=== PATIENT | male | born 1985 | race Caucasian/White ===

== ENCOUNTER → 2020-03-06 12:06 | Outpatient (BNVA) | payer OTHER, SELFPAY | PROVIDERS: Family Provider Nurse Practitioner Family; Visit Provider Emergency Medicine | DX: K76.0 Fatty (change of) liver, not elsewhere classified (principal); R14.0 Abdominal distension (gaseous); R10.9 Unspecified abdominal pain; R60.9 Edema, unspecified | CPT/HCPCS: 80053; 80061; 80074; 82247; 82248; 83036; 83690; 85025 ==

== ENCOUNTER 2021-01-14 14:17 | Emergency (ER) | payer OTHER, SELFPAY ==
[2021-01-14 14:47] VITALS: BP 149/93; PULSE 79; RESP 18; TEMP 36.6; O2SAT 97; BMI 48.7
--- NOTE | 2021-01-14 14:56 | ED_ITS ---
HPI - Abdominal Pain General: Chief Complaint: Abdominal Pain Stated Complaint: constipated, bloated Time Seen by Provider: 01/14/21 14:20 History of Present Illness: HPI narrative: 35-year-old male presents emergency room complaining of bloating and just generally not feeling well. He has not had a normal bowel movement for several days he is taken MiraLAX and mag citrate with only minimal results he mostly just gets watery discolored stool that is colored the same color is a mag citrate he took a. He has not had any vomiting or diarrhea he is not had any confusion. He does have a history of liver disease his last time he had labs checked was about 3 months ago they are not abnormal at that time. Is not currently on any lactulose. MD elicited complaint: abdominal pain Pertinent past history: constipation and other (History of liver disease) Onset (ago): day(s) Pain Consistency: intermittent Location: Diffuse Severity: moderate Quality: cramping Radiation: none Migration to: no migration Exacerbating factors: nothing Relieving factors: nothing Associated Symptoms: Reports bloating, constipation, GI cramping, nausea and poor appetite; Denies anorexia, belching, change in bowel habits, change in stool character, chills, coffee ground emesis, diarrhea, dyspepsia, dysuria, excessive flatus, fever(s), heartburn, hematochezia, hematuria, hematemesis, fecal incontinence, loose stools, melena, syncope and vomiting Review of Systems Const: Denies: fever(s) or chills ENMT: Denies: throat pain, ear or mastoid pain, nasal discharge or nasal congestion Card: Denies: syncope Resp: Denies: dyspnea, productive cough or non-productive cough GI: Reports: nausea, constipation, bloating and GI cramping; Denies: vomiting, hematemesis, coffee ground emesis, heartburn, diarrhea, belching, excessive flatus, fecal incontinence, change in bowel habits, change in stool character, hematochezia or melena : Denies: dysuria or hematuria Skin/Breast: Denies: rash or pruritus PFS ED PFSH: Medical History Nonalcoholic fatty liver disease Peripheral edema Family History Father Hypertension Diabetes Denies family history of Stroke Social History Smoking and tobacco status: former smoker Alcohol intake: former Year of sobriety/quit date alcohol: 2009 Physical Exam Const: COMMON NORMALS: no acute distress GENERAL APPEARANCE: cooperative and comfortable ORIENTATION/CONSCIOUSNESS: Yes awake, Yes oriented to person, Yes oriented to place and Yes oriented to time HENMT: COMMON NORMALS: normocephalic, atraumatic and hearing grossly normal bilaterally HEAD & SCALP: normocephalic and atraumatic Neck/C-Spine: COMMON NORMALS: no JVD Resp: COMMON NORMALS: normal respiratory effort, No retractions, No use of accessory muscles and clear to auscultation bilaterally AUSCULTATION: clear to auscultation bilaterally Cardio: COMMON NORMALS: no JVD, regular rate, regular rhythm and No murmurs present (Cardio) RATE: regular rate RHYTHM: regular rhythm GI: COMMON NORMALS: Soft to palpation and No hepatosplenomegaly present AUSCULTATION: Yes normoactive bowel sounds PALPATION: Yes Soft to palpation, No Tenderness to palpation present (GI), No Guarding due to palpation present (GI) and Yes No hepatosplenomegaly present Extremity: COMMON NORMALS: normal to inspection, capillary refill normal, no clubbing, cyanosis or edema, no calf tenderness and no pedal edema Neuro: SENSORIUM/ORIENTATION: Yes oriented to person, Yes oriented to place and Yes oriented to time Skin: COMMON NORMALS: no rashes or lesions noted GENERAL SKIN EXAM: no rashes or lesions noted Course Vital Signs: Vital signs: Vital Signs Temperature 97.8 F 01/14/21 14:47 Pulse Rate 78 01/14/21 18:19 Respiratory Rate 16 01/14/21 18:19 Blood Pressure 141/78 01/14/21 18:19 Pulse Oximetry 100 01/14/21 18:19 MDM - Abdominal Pain MDM Narrative: Medical decision making narrative: Labs and imaging of the patient. Based on his history and his exam will he is simply constipated his abdominal exam is benign he has no acute peritoneal signs. His laboratory tests are reviewed and is well. At this point I do not think a CT of the abdomen with the significantly contributory. We will discharge him home have a new fleets enema when he gets results from that then I would recommend he do some mag use some mag citrate. Discussed with Richard is for maintenance of regular bowel movements with his stimulants. Follow-up with his primary care doctor. He probably should at some point in the near future to get a colonoscopy done given these complaints. Lab Data: Labs: Lab Results 01/14/21 01/14/21 01/14/21 Range/Units 15:24 15:24 16:26 WBC 11.1 H (4.0-10.0) 10^3/ uL RBC 4.76 (4.1-5.3) 10^6/u L Hgb 14.9 (11.7-16.6) g/dL Hct 45.0 (42.0-52.0) % MCV 94.5 H (80-94) fl MCH 31.3 (28.0-34.0) pg MCHC 33.1 (30.0-36.0) g/dL RDW 17.4 H (12.1-15.1) % Plt Count 118 L (130-400) 10^3/c mm MPV 10.5 H (7.4-10.4) fL Neut % (Auto) 63.6 % Lymph % (Auto) 25.3 % [place] % (Auto) 9.5 % Eos % (Auto) 1.0 % Baso % (Auto) 0.1 % Neut # (Auto) 7.03 (1.8-7.7) 10^3/u L Lymph # (Auto) 2.8 (0.8-4.8) 10^3/u L [place] # (Auto) 1.1 H (0.2-0.9) 10^3/u L Eos # (Auto) 0.1 (0.0-0.8) 10^3/u L Baso # (Auto) 0.0 (0.0-0.1) 10^3/u L Nucleated RBC % (a uto) 0 % Nucleated RBCs # 0.0 /100WBC Sodium Cancelled Potassium Cancelled Chloride Cancelled Carbon Dioxide Cancelled Anion Gap Cancelled BUN Cancelled Creatinine Cancelled GFR Calculation Cancelled Glucose Cancelled Calculated Osmolal ity Cancelled Calcium Cancelled Total Bilirubin Cancelled AST Cancelled ALT Cancelled Alkaline Phosphata se Cancelled Ammonia 25 (16-60) umol/L Total Protein Cancelled Albumin Cancelled Globulin Cancelled Lipase Cancelled 01/14/21 Range/Units 16:50 WBC (4.0-10.0) 10^3/ uL RBC (4.1-5.3) 10^6/u L Hgb (11.7-16.6) g/dL Hct (42.0-52.0) % MCV (80-94) fl MCH (28.0-34.0) pg MCHC (30.0-36.0) g/dL RDW (12.1-15.1) % Plt Count (130-400) 10^3/c mm MPV (7.4-10.4) fL Neut % (Auto) % Lymph % (Auto) % [place] % (Auto) % Eos % (Auto) % Baso % (Auto) % Neut # (Auto) (1.8-7.7) 10^3/u L Lymph # (Auto) (0.8-4.8) 10^3/u L [place] # (Auto) (0.2-0.9) 10^3/u L Eos # (Auto) (0.0-0.8) 10^3/u L Baso # (Auto) (0.0-0.1) 10^3/u L Nucleated RBC % (a uto) % Nucleated RBCs # /100WBC Sodium 139 Potassium 3.6 Chloride 106 Carbon Dioxide 28 Anion Gap 8.6 BUN 15 Creatinine 0.9 GFR Calculation 95.5 Glucose 76 Calculated Osmolal ity 288 Calcium 7.6 L Total Bilirubin 1.1 AST 75 H ALT 103 H Alkaline Phosphata se 54 Ammonia (16-60) umol/L Total Protein 5.3 L Albumin 2.7 L Globulin 2.6 Lipase 43 Discharge Plan Discharge Patient Disposition: Home Clinical Impression: Constipation Condition: Stable Prescriptions: New Fleet Enema 19-7 gram/118 mL enema 118 ml MI DAILY PRN (Reason: constipation) Qty: 133 RF: 3 magnesium citrate Solution 150 ml PO BID PRN (Reason: constipation) Qty: 296 RF: 0 No Action cholecalciferol (vitamin D3) 25 mcg (1,000 unit) capsule 25 mcg PO DAILY RF: 0 ascorbic acid (vitamin C) 1,000 mg tablet 1 g PO Q6H RF: 0 omega-3 fatty acids [Fish Oil Concentrate] 1,000 mg capsule 1,000 mg PO DAILY RF: 0 dexamethasone 6 mg tablet 6 mg PO DAILY 7 Days Qty: 7 RF: 0 albuterol sulfate [ProAir HFA] 90 mcg/actuation HFA aerosol inhaler 2 puff inhalation Q6H PRN (Reason: shortness of breath or wheezing) Qty: 8.5 RF: 0 Discharge Orders: Discharge ED (Routine); Ordered 01/14/21 Ordered By: Donal Watt Referrals: Karan Kramer MD [Primary Care Provider] - Discharge Diet: Clear Liquid Discharge Activity: Resume usual activity Patient Instructions: Opioid Safety Coding Level of Care Code ED [employer] for [facility]rey[employer] Fwd Exam Comprehensive
--- NOTE | 2021-01-14 14:56 | XRR_ITS ---
PROCEDURE INFORMATION: Exam: XR Chest Exam date and time: 01/14/2021 2:56 PM Age: 35 years old Clinical indication: Cough and dyspnea; Additional info: Dyspnea/cough TECHNIQUE: Imaging protocol: XR of the chest. Views: 1 view. COMPARISON: [place] Chest 1 [place] [id number] 02/18/2017 4:53 PM FINDINGS: Lungs: Unremarkable. No consolidation. Pleural spaces: Unremarkable. No pleural effusion. No pneumothorax. Heart/Mediastinum: Unremarkable. No cardiomegaly. Bones/joints: Unremarkable. XR/XR chest 1V portable [id number] IMPRESSION: No acute findings.
[2021-01-14 15:04] VITALS: BP 155/104; PULSE 87; RESP 16; O2SAT 98
--- NOTE | 2021-01-14 16:21 | XRR_ITS ---
PROCEDURE INFORMATION: Exam: XR Abdomen Exam date and time: 01/14/2021 4:21 PM Age: 35 years old Clinical indication: Abdominal pain; Additional info: Abd pain/constipation TECHNIQUE: Imaging protocol: XR of the abdomen. Views: Frontal supine view of the abdomen. 1 View. COMPARISON: CT abdomen pelvis w con* [id number] 10/13/2018 1:14 PM FINDINGS: Gastrointestinal tract: Scattered mildly dilated small bowel loops are nonspecific. Possibly mucosal fold thickening of small bowel. Negative for bowel wall pneumatosis. Intraperitoneal space: Negative for pneumoperitoneum. Bones/joints: Unremarkable. XR/XR KUB [id number] IMPRESSION: Mildly distended small bowel loops with mild mucosal fold thickening changes. Enteritis not excluded.
[2021-01-14 16:23] LABS: Basophils % 0.1 %; Eosinophils # 0.1 10^3/uL (0.0-0.8); Hemoglobin 14.9 g/dL (11.7-16.6); Lymphocytes # 2.8 10^3/uL (0.8-4.8); Lymphocytes % 25.3 %; Mean Corpuscular HGB Conc 33.1 g/dL (30.0-36.0); Mean Corpuscular Hemoglobin 31.3 pg (28.0-34.0); Mean Corpuscular Volume 94.5 fl (80-94); Mean Platelet Volume 10.5 fL (7.4-10.4); Monocytes # 1.1 10^3/uL (0.2-0.9); Monocytes % 9.5 %; Neutrophils # 7.03 10^3/uL (1.8-7.7); Neutrophils % 63.6 %; Nucleated Red Blood Cells % 0 %; Platelet Count 118 10^3/cmm (130-400); Red Blood Count 4.76 10^6/uL (4.1-5.3); Red Cell Distribution Width 17.4 % (12.1-15.1); White Blood Count 11.1 10^3/uL (4.0-10.0)
[2021-01-14 16:50] LABS: Ammonia 25 umol/L (16-60)
[2021-01-14 17:20] LABS: Alanine Aminotransferase 103 U/L (0-41); Albumin Level 2.7 g/dL (3.5-5.2); Alkaline Phosphatase 54 IU/L (40-130); Anion Gap 8.6 (5-19); Aspartate Amino Transferase 75 U/L (0-40); Blood Urea Nitrogen 15 mg/dL (6-20); Calcium 7.6 mg/dL (8.5-10.5); Carbon Dioxide 28 mmol/L (22-29); Chloride 106 mmol/L (98-107); Globulin 2.6 g/dL (1.3-4.6); Glomerular Filtration Rate 95.5 mL/min (90-130); Glucose 76 mg/dL (65-115); Lipase 43 U/L (13-60); Osmolality Calculated 288 mOsm/kg (285-295); Potassium 3.6 mmol/L (3.5-5.1); Sodium 139 mmol/L (136-145); Total Bilirubin 1.1 mg/dL (0.15-1.2); Total Protein 5.3 g/dL (6.6-8.7)
[2021-01-14 18:19] VITALS: BP 141/78; PULSE 78; RESP 16; O2SAT 100
== END 2021-01-14 18:20 | disposition home or self-care (01) ==
PROVIDERS: Emergency Provider Family Medicine; PCP Family Medicine
DX: K59.00 Constipation, unspecified (principal); Z87.891 Personal history of nicotine dependence
CPT/HCPCS: 36415; 71045; 74018; 80053; 82140; 83690; 85025; 99283

== ENCOUNTER → 2021-08-16 14:24 | Outpatient (BNVA) | payer OTHER, SELFPAY | PROVIDERS: PCP Family Medicine; Visit Provider Surgery | DX: Z20.822 Contact with and (suspected) exposure to COVID-19 (principal); Z11.52 Encounter for screening for COVID-19 | CPT/HCPCS: 87635 ==

== ENCOUNTER 2021-08-17 09:18 | Day surgery (SDC) | payer OTHER, SELFPAY ==
--- NOTE | 2021-08-17 09:40 | ANES.PREANE2 ---
Pre-Anesthetic Assessment Height/Weight: Height 1.75 m Weight 146.057 kg Preop Diagnosis: Abdominal pain and GERD Operation Date: 08/17/21 10:45 Proposed Procedures p EGD 00890/r10.9 UNS ABD PAIN/k21.9 GASTRO-ESOPHAGEAL REFLUX(Not Applicable) - Vincenzo Mcknight MD Familial anesthetic complications: None Was Beta Manuel taken within 24 hours: N/A Was Clonidine taken within 24 hours: N/A Last intake: > 8hrs Social No alcohol and No tobacco Exam alert, oriented x 3, clear to auscultation bilaterally and regular rate & rhythm Airway Mallampati: Class I Dentition: other (dentures) Pulmonary None reported CV/HEM None reported None reported Hepatic Fatty liver GI Gastroesophageal Reflux Disease Metabolic Morbid Obesity [facility] None reported Neuropsych None reported Anesthetic Plan ASA status: 2 Anesthesia: MAC Risk of > 500 ml blood loss (7ml/kg in children): No Medications/Allergies Home Medications Medication Instructions Recorded Confirmed Last Taken Type albuterol sulfate 90 mcg/actuation 2 puff INHALATION Q6H PRN #8.5 g 08/04/21 08/16/21 08/16/21 Rx aerosol inhaler dicyclomine 20 mg tablet 20 mg PO TID #30 tab 08/15/21 08/16/21 08/16/21 Rx omeprazole 40 mg capsule,delayed 40 mg PO DAILY 30 Days #30 cap 08/15/21 08/16/21 08/16/21 Rx release Allergies Allergy/AdvReac Type Severity Reaction Status Date / Time No Known Allergies Allergy Verified 08/17/21 05:40 [facility] Anesthesia Medical History Nonalcoholic fatty liver disease Peripheral edema Family History Father Hypertension Diabetes Denies family history of Stroke Social History Smoking and tobacco status: former smoker Alcohol intake: former Year of sobriety/quit date alcohol: 2009 Data Anesthesia Cardiac Studies: No Data to Display
[2021-08-17 09:55] VITALS: BP 172/107; PULSE 74; RESP 17; TEMP 36.6; O2SAT 97
--- NOTE | 2021-08-17 09:55 | W.PM.OPSUD ---
Surgery/Procedure H&P Update DATE OF PROCEDURE: August 17, 2021 DATE H&P PERFORMED: 08/16/21 H&P UPDATE INFORMATION: I have reviewed H&P completed within last 30 days, I have examined patient prior to procedure and No changes to prior documentation PREOP DIAGNOSIS: Abdominal pain and GERD PRIMARY INDICATION FOR PROCEDURE: The same PLANNED PROCEDURE: Operation Date: 08/17/21 10:45 Proposed Procedures p EGD 45798/r10.9 UNS ABD PAIN/k21.9 GASTRO-ESOPHAGEAL REFLUX(Not Applicable) - Vincenzo Mcknight MD
[2021-08-17] MEDS: sodium chloride 0.9% 1,000 ML 30 ML IV (10:10)
[2021-08-17 11:55] VITALS: BP 145/75; PULSE 72; RESP 16; TEMP 36.3; O2SAT 97
[2021-08-17 12:07] VITALS: BP 153/89; PULSE 68; RESP 18; O2SAT 96
== END 2021-08-17 12:16 | disposition home or self-care (01) ==
PROVIDERS: PCP Emergency Medicine; Visit Provider Surgery
PROC: 0DJ08ZZ Inspection of Upper Intestinal Tract, Via Natural or Artificial Opening Endoscopic (ICD-10-PCS; CPT 43235; principal; 2021-08-17 10:45)
DX: R10.9 Unspecified abdominal pain (principal); K21.9 Gastro-esophageal reflux disease without esophagitis; K29.70 Gastritis, unspecified, without bleeding; Z87.891 Personal history of nicotine dependence; K76.0 Fatty (change of) liver, not elsewhere classified; E66.01 Morbid (severe) obesity due to excess calories; Z68.42 Body mass index [BMI] 45.0-49.9, adult
CPT/HCPCS: 43239; 88305; 88342; J2704; J7030

== ENCOUNTER → 2022-01-03 15:37 | Outpatient (BNVA) | payer OTHER, SELFPAY | PROVIDERS: PCP Emergency Medicine; Visit Provider Emergency Medicine | DX: J02.9 Acute pharyngitis, unspecified (principal); I10 Essential (primary) hypertension; R60.9 Edema, unspecified; K76.0 Fatty (change of) liver, not elsewhere classified; E66.01 Morbid (severe) obesity due to excess calories | CPT/HCPCS: 87071; 87880 ==

== ENCOUNTER 2022-03-21 06:54 | Outpatient (CLI) | payer OTHER, SELFPAY ==
--- NOTE | 2022-03-21 07:15 | US_ITS ---
WS: [id number] RIGHT UPPER QUADRANT ULTRASOUND HISTORY: R10.9 - Unspecified abdominal pain COMPARISON: None available. Liver: 15.3 cm in length. Very mild coarse echotexture throughout the liver. No mass or bile duct dil atation. Portal triads are still apparent. Surface of the liver is very slightly nodular. Portal Vein: Normal hepatopetal flow with monophasic waveform. Gallbladder: Normally distended gallbladder with no stones or wall thickening. CBD: 0.4 cm Pancreas: Poorly visualized. Right kidney: 13.7 cm in length. Normal size and echogenicity. No hydronephrosis or mass. Aorta and IVC: Unremarkable abdominal aorta and IVC. No ascites. US/US abdomen limited [id number] IMPRESSION: 1. Normal gallbladder. 2. Very mild early changes of hepatic steatosis and possible cirrhosis. Surfac e of the liver is very minimally nodular. 3. Poorly visualized pancreas.
== END 2022-03-21 06:55 | disposition home or self-care (01) ==
LOC: RAD 06:55
PROVIDERS: PCP Emergency Medicine; Visit Provider Surgery
DX: R10.9 Unspecified abdominal pain (principal); K76.0 Fatty (change of) liver, not elsewhere classified
CPT/HCPCS: 76705

== ENCOUNTER → 2022-06-18 15:57 | Outpatient (BNVA) | payer OTHER, SELFPAY | PROVIDERS: PCP Emergency Medicine; Visit Provider Nurse Practitioner Family | DX: R68.89 Other general symptoms and signs (principal); U07.1 COVID-19; H65.112 Acute and subacute allergic otitis media (mucoid) (sanguinous) (serous), left ear | CPT/HCPCS: 87400; 87426 ==

== ENCOUNTER 2022-12-06 18:24 | Emergency (ER) | payer OTHER, SELFPAY ==
[2022-12-06 18:34] VITALS: BP 127/82; PULSE 70; RESP 18; TEMP 36.8; O2SAT 96; BMI 39.9
[2022-12-06 19:18] LABS: Basophils % 0.3 %; Eosinophils # 0.1 10^3/uL (0.0-0.8); Eosinophils % 1.5 %; Hematocrit 44.7 % (42.0-52.0); Hemoglobin 15.1 g/dL (11.7-16.6); Lymphocytes # 1.3 10^3/uL (0.8-4.8); Lymphocytes % 34.5 %; Mean Corpuscular HGB Conc 33.8 g/dL (30.0-36.0); Mean Corpuscular Hemoglobin 30.5 pg (28.0-34.0); Mean Corpuscular Volume 90.3 fl (80-94); Mean Platelet Volume 9.4 fL (7.4-10.4); Monocytes # 0.4 10^3/uL (0.2-0.9); Monocytes % 9.8 %; Neutrophils # 2.09 10^3/uL (1.8-7.7); Neutrophils % 53.9 %; Nucleated Red Blood Cells % 0 %; Platelet Count 77 10^3/cmm (130-400); Red Blood Count 4.95 10^6/uL (4.1-5.3); Red Cell Distribution Width 13.2 % (12.1-15.1); White Blood Count 3.9 10^3/uL (4.0-10.0)
[2022-12-06 19:27] LABS: Alanine Aminotransferase 34 U/L (0-41); Albumin Level 3.8 g/dL (3.5-5.2); Alkaline Phosphatase 59 U/L (40-130); Anion Gap 15.3 (5-19); Aspartate Amino Transferase 32 U/L (0-40); Blood Urea Nitrogen 13 mg/dL (6-20); Calcium 9.3 mg/dL (8.5-10.5); Carbon Dioxide 26 mmol/L (22-29); Chloride 101 mmol/L (98-107); Creatine Phosphokinase 72 U/L (39-308); Creatinine Clr Calc Pharmacy 148.3401; Globulin 2.9 g/dL (1.3-4.6); Glomerular Filtration Rate 94.4 mL/min (90-130); Glucose 80 mg/dL (65-115); Osmolality Calculated 285 mOsm/kg (285-295); Potassium 4.3 mmol/L (3.5-5.1); Sodium 138 mmol/L (136-145); Total Bilirubin 0.8 mg/dL (0.15-1.2); Total Protein 6.7 g/dL (6.6-8.7)
[2022-12-06 19:54] LABS: Add Urine Microscopic? YES; Bilirubin Urine Neg (Negative); Blood Urine 3+ (Negative); Glucose Urine UA Norm (Normal); Ketones Urine 2+ (Negative); Leukocyte Esterase Urine Negative (Negative); Nitrate Urine Negative (Negative); Protein Urine 2+ (Negative); Specific Gravity, Urine 1.025 (1.005-1.030); Urine Appearance SL Hazy (CLEAR); Urine Color Yellow (Yellow); Urobilinogen Urine Norm (Negative); pH Urine 5 (5-7)
[2022-12-06 19:59] VITALS: BP 130/73; PULSE 72; RESP 15; TEMP 36.8; O2SAT 96
[2022-12-06 20:00] LABS: Add Urine Culture? No; RBC Urine 0-4 /hpf (0-2); Squamous Epithelial Cell Urine 0-4 /hpf (0-5); WBC Urine 0-4 /hpf (0-5)
[2022-12-06 20:05] VITALS: BP 129/86; PULSE 69; RESP 16; O2SAT 95
--- NOTE | 2022-12-06 20:05 | ED_ITS ---
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, meth, opiates Course Vital Signs: Vital signs: Vital Signs Temperature 98.3 F 12/06/22 19:59 Pulse Rate 72 12/06/22 19:59 Respiratory Rate 15 12/06/22 19:59 Blood Pressure 130/73 12/06/22 19:59 Pulse Oximetry 96 12/06/22 19:59 Oxygen Delivery Me thod Room Air 12/06/22 19:59 MDM - Dizziness Lab Data 12/06/22 19:01 12/06/22 19:01 Laboratory Results WBC 3.9 10^3/uL (4.0-10.0) L 12/06/22 19:01 RBC 4.95 10^6/uL (4.1-5.3) 12/06/22 19:01 Hgb 15.1 g/dL (11.7-16.6) 12/06/22 19:01 Hct 44.7 % (42.0-52.0) 12/06/22 19:01 MCV 90.3 fl (80-94) 12/06/22 19:01 MCH 30.5 pg (28.0-34.0) 12/06/22 19:01 MCHC 33.8 g/dL (30.0-36.0) 12/06/22 19:01 RDW 13.2 % (12.1-15.1) 12/06/22 19:01 Plt Count 77 10^3/cmm (130-400) L 12/06/22 19:01 MPV 9.4 fL (7.4-10.4) 12/06/22 19:01 Neut % (Auto) 53.9 % 12/06/22 19:01 Lymph % (Auto) 34.5 % 12/06/22 19:01 [place] % (Auto) 9.8 % 12/06/22 19:01 Eos % (Auto) 1.5 % 12/06/22 19:01 Baso % (Auto) 0.3 % 12/06/22 19:01 Neut # (Auto) 2.09 10^3/uL (1.8-7.7) 12/06/22 19:01 Lymph # (Auto) 1.3 10^3/uL (0.8-4.8) 12/06/22 19:01 [place] # (Auto) 0.4 10^3/uL (0.2-0.9) 12/06/22 19:01 Eos # (Auto) 0.1 10^3/uL (0.0-0.8) 12/06/22 19:01 Baso # (Auto) 0.0 10^3/uL (0.0-0.1) 12/06/22 19:01 Nucleated RBC % (auto) 0 % 12/06/22 19: Nucleated RBCs # 0.0 /100WBC 12/06/22 19:01 Sodium 138 mmol/L (136-145) 12/06/22 19: Potassium 4.3 mmol/L (3.5-5.1) 12/06/22 19: Chloride 101 mmol/L (98-107) 12/06/22 19: Carbon Dioxide 26 mmol/L (22-29) 12/06/22 19: Anion Gap 15.3 (5-19) 12/06/22 19: BUN 13 mg/dL (6-20) 12/06/22 19: Creatinine 0.9 mg/dL (0.7-1.2) 12/06/22 19: GFR Calculation 94.4 mL/min (90-130) 12/06/22 19: Glucose 80 mg/dL (65-115) 12/06/22 19: Calculated Osmolality 285 mOsm/kg (285-295) 12/06/22 19: Calcium 9.3 mg/dL (8.5-10.5) 12/06/22 19: Total Bilirubin 0.8 mg/dL (0.15-1.2) 12/06/22 19:01 AST 32 U/L (0-40) 12/06/22 19: ALT 34 U/L (0-41) 12/06/22 19:01 Alkaline Phosphatase 59 U/L (40-130) 12/06/22 19:01 Creatine Kinase 72 U/L (39-308) 12/06/22 19: Total Protein 6.7 g/dL (6.6-8.7) 12/06/22 19: Albumin 3.8 g/dL (3.5-5.2) 12/06/22 19: Globulin 2.9 g/dL (1.3-4.6) 12/06/22 19: Urine Color Yellow (Yellow) 12/06/22 19:00 Urine Appearance Sl hazy (CLEAR) A 12/06/22 19:00 Urine pH 5 (5-7) 12/06/22 19:00 Ur Specific [place] 1.025 (1.005-1.030) 12/06/22 19:00 Urine Protein 2+ (Negative) H 12/06/22 19:00 Urine Glucose (UA) Norm (Normal) 12/06/22 19:00 Urine Ketones 2+ (Negative) H 12/06/22 19:00 Urine Blood 3+ (Negative) H 12/06/22 19:00 Urine Nitrate Negative (Negative) 12/06/22 19:00 Urine Bilirubin Neg (Negative) 12/06/22 19:00 Urine Urobilinogen Norm mg/dL (Negative) 12/06/22 19: Ur Leukocyte Esterase Negative (Negative) 12/06/22 19:00 Urine RBC 0-4 /hpf (0-2) H 12/06/22 19:00 Urine WBC 0-4 /hpf (0-5) H 12/06/22 19:00 Ur Squamous Epith Cells 0-4 /hpf (0-5) H 12/06/22 19:00 Amorphous Sediment Not Reportable 12/06/22 19:00 Urine Bacteria None /hpf (NONE) 12/06/22 19:00 Discharge Plan Discharge Condition: Stable Prescriptions: No Action lisinopril 40 mg tablet 40 mg PO DAILY lisinopril 40 mg tablet 40 mg PO DAILY Qty: 30 0RF hydrochlorothiazide 12.5 mg tablet 12.5 mg PO QAM Qty: 30 0RF amoxicillin 875 mg tablet 875 mg PO BID 10 Days Qty: 20 0RF ibuprofen 600 mg tablet 600 mg PO Q8H PRN (Reason: pain) Qty: 60 0RF Referrals: Karan Kramer MD [Primary Care Provider] - Coding Level of Care Code ED Supervisor Testing for Román Díaz
[2022-12-06 20:06] VITALS: BP 137/80; BP 142/86; BP 153/108
[2022-12-06] MEDS: sodium chloride 0.9% 1,000 ML 999 ML IV (20:12)
[2022-12-06] MEDS: folic acid 1 MG, multivitamin inj 10 ML, thiamine 100 MG in sodium chloride 0.9% 1,000 ML 252.8 MG IV (20:41)
[2022-12-06 20:42] VITALS: BP 128/85; PULSE 67; RESP 18; O2SAT 96
--- NOTE | 2022-12-06 21:03 | ED_ITS ---
HPI - Dizziness General: Chief Complaint: Dizziness Stated Complaint: feel dehydrated Time Seen by Provider: 12/06/22 19:36 History of Present Illness: HPI Narrative: 29 years old male presented emergency room with a complaint of dizziness and generalized weakness apparently past few days. Patient further reveals that he recently had gastric bypass done in [place] about 3 weeks ago. He reviews that his surgery was uneventful and was discharged without any complication. Within the past few days patient noticed some nausea with no vomiting and decrease oral intake. She denies any chest pain, cough, coughing up blood or vomiting blood. Area, bloody stool or dark stool. Bowel movement was few days ago. No known sick contacts or foreign travel. Patient spoke with the surgeon that performed the gastric bypass and was told to come to the emergency room for further evaluation and possible IV fluid. Associated symptoms: Reports nausea; Denies chills, malaise or vomiting Associated neuro symptoms: Deny dysphagia Review of Systems General: Reports: 10 or more systems reviewed and unremarkable except in HPI and below Const: Reports: fatigue; Denies: fever(s), chills, body aches, change in appetite, change in weight, malaise or night sweats GI: Reports: nausea and constipation; Denies: vomiting, hematemesis, coffee ground emesis, dysphagia, heartburn, early satiety, diarrhea, bloating, GI cramping, belching, excessive flatus, fecal incontinence, change in bowel habits, pain on defecation, rectal pain, rectal swelling, rectal itching or change in stool character Psych: Denies: anxiety, depression, mood swings, panic attacks, sleeping less, sleeping more, hopelessness or loss of interest PFS ED PFSH: Medical History HTN (hypertension) with goal to be determined Nonalcoholic fatty liver disease Peripheral edema Family History Father Hypertension Diabetes Denies family history of Stroke Social History Smoking and tobacco status: former smoker Alcohol intake: former Year of sobriety/quit date alcohol: 2009 Substance/Drug Use: former Date of last use: marijuana, meth, opiates Physical Exam Const: COMMON NORMALS: no acute distress, average body habitus, patient oriented x3, no limitations, healthy appearing, alert and well nourished Eye: COMMON NORMALS: Equal, round and reactive pupils present, EOMs intact bilaterally, conjunctivae normal, no scleral icterus, no papilledema, normal visual fernandez by confrontation and fundi normal bilaterally CONJUNCTIVA: Yes conjunctivae normal PUPIL: Yes Equal, round and reactive pupils present DIRECT OPHTHALMOSCOPY: Yes no papilledema and Yes fundi normal bilaterally Chest: COMMONS NORMALS: normal inspection of the chest, normal palpation of entire chest wall, normal inspection of the breasts and normal palpation of the breasts Breast/axilla inspection: Yes normal inspection of the breasts BREAST/AXILLA PALPATION: Yes normal palpation of the breasts Resp: COMMON NORMALS: normal respiratory effort, No retractions, No use of accessory muscles, clear to auscultation bilaterally and percussion normal AUSCULTATION: clear to auscultation bilaterally PERCUSSION: percussion normal GI: COMMON NORMALS: Soft to palpation; negative for No hepatosplenomegaly present INSPECTION: Yes normal to inspection and Yes other (Record incisions with any signs of acute infection.) PALPATION: Yes Soft to palpation, No Firmness to palpation present (GI), No Tenderness to palpation present (GI), No Guarding due to palpation present (GI), No Rigid due to palpation, No No hepatosplenomegaly present and No Hepatosplenomegaly present Extremity: COMMON NORMALS: no joint enlargement, no clubbing, cyanosis or edema, no calf tenderness and no pedal edema; negative for normal to inspection, negative for full ROM and negative for capillary refill normal Neuro: COMMON NORMALS: patient oriented x3 SENSORIUM/ORIENTATION: Yes alert Skin: COMMON NORMALS: no rashes or lesions noted, no wounds, turgor normal, no jaundice, no petechiae and no mottling GENERAL SKIN EXAM: no rashes or lesions noted and turgor normal Course Vital Signs: Vital signs: Vital Signs Temperature 98.3 F 12/06/22 19:59 Pulse Rate 67 12/06/22 20:42 Respiratory Rate 18 12/06/22 20:42 Blood Pressure 128/85 12/06/22 20:42 Pulse Oximetry 96 12/06/22 20:42 Oxygen Delivery Me thod Room Air 12/06/22 20:42 MDM - Dizziness Medical Decision Making Patient made comfortable emergency room. Given IV fluid and banana bag. [place] the lab finding with the patient. Possible PCP recommended for further evaluation and treatment. Differential Diagnosis Likely adverse reaction to drug, orthostatic hypotension, vertebral basilar insufficiency, cerebrovascular accident, acute vestibular neuronitis and transient cerebral ischemia Lab Data 12/06/22 19:12/06/22 19: Laboratory Results WBC 3.9 10^3/uL (4.0-10.0) L 12/06/22: RBC 4.95 10^6/uL (4.1-5.3) 12/06/22 19: Hgb 15.1 g/dL (11.7-16.6) 12/06/22: Hct 44.7 % (42.0-52.0) 12/06/22: MCV 90.3 fl (80-94) 12/06/22: MCH 30.5 pg (28.0-34.0) 12/06/22: MCHC 33.8 g/dL (30.0-36.0) 12/06/22: RDW 13.2 % (12.1-15.1) 12/06/22: Plt Count 77 10^3/cmm (130-400) L 12/06/22: MPV 9.4 fL (7.4-10.4) 12/06/22 19: Neut % (Auto) 53.9 % 12/06/22: Lymph % (Auto) 34.5 % 12/06/22: [place] % (Auto) 9.8 % 12/06/22 19: Eos % (Auto) 1.5 % 12/06/22: Baso % (Auto) 0.3 % 12/06/22 19: Neut # (Auto) 2.09 10^3/uL (1.8-7.7) 12/06/22: Lymph # (Auto) 1.3 10^3/uL (0.8-4.8) 12/06/22 19: [place] # (Auto) 0.4 10^3/uL (0.2-0.9) 12/06/22 19: Eos # (Auto) 0.1 10^3/uL (0.0-0.8) 12/06/22 19:01 Baso # (Auto) 0.0 10^3/uL (0.0-0.1) 12/06/22 19:01 Nucleated RBC % (auto) 0 % 12/06/22 19: Nucleated RBCs # 0.0 /100WBC 12/06/22 19:01 Sodium 138 mmol/L (136-145) 12/06/22 19: Potassium 4.3 mmol/L (3.5-5.1) 12/06/22 19: Chloride 101 mmol/L (98-107) 12/06/22 19: Carbon Dioxide 26 mmol/L (22-29) 12/06/22 19: Anion Gap 15.3 (5-19) 12/06/22 19: BUN 13 mg/dL (6-20) 12/06/22 19: Creatinine 0.9 mg/dL (0.7-1.2) 12/06/22 19: GFR Calculation 94.4 mL/min (90-130) 12/06/22 19: Glucose 80 mg/dL (65-115) 12/06/22 19: Calculated Osmolality 285 mOsm/kg (285-295) 12/06/22 19: Calcium 9.3 mg/dL (8.5-10.5) 12/06/22 19: Total Bilirubin 0.8 mg/dL (0.15-1.2) 12/06/22 19: AST 32 U/L (0-40) 12/06/22 19: ALT 34 U/L (0-41) 12/06/22 19: Alkaline Phosphatase 59 U/L (40-130) 12/06/22 19: Creatine Kinase 72 U/L (39-308) 12/06/22 19: Total Protein 6.7 g/dL (6.6-8.7) 12/06/22 19: Albumin 3.8 g/dL (3.5-5.2) 12/06/22 19: Globulin 2.9 g/dL (1.3-4.6) 12/06/22 19:01 Urine Color Yellow (Yellow) 12/06/22 19:00 Urine Appearance Sl hazy (CLEAR) A 12/06/22 19:00 Urine pH 5 (5-7) 12/06/22 19:00 Ur Specific [place] 1.025 (1.005-1.030) 12/06/22 19:00 Urine Protein 2+ (Negative) H 12/06/22 19:00 Urine Glucose (UA) Norm (Normal) 12/06/22 19:00 Urine Ketones 2+ (Negative) H 12/06/22 19:00 Urine Blood 3+ (Negative) H 12/06/22 19:00 Urine Nitrate Negative (Negative) 12/06/22 19:00 Urine Bilirubin Neg (Negative) 12/06/22 19:00 Urine Urobilinogen Norm mg/dL (Negative) 12/06/22 19:00 Ur Leukocyte Esterase Negative (Negative) 12/06/22 19:00 Urine RBC 0-4 /hpf (0-2) H 12/06/22 19:00 Urine WBC 0-4 /hpf (0-5) H 12/06/22 19:00 Ur Squamous Epith Cells 0-4 /hpf (0-5) H 12/06/22 19:00 Amorphous Sediment Not Reportable 12/06/22 19:00 Urine Bacteria None /hpf (NONE) 12/06/22 19:00 Discharge Plan Discharge Patient Disposition: Home Clinical Impression: Acquired thrombocytopenia, Dizziness, Dehydration Condition: Stable Prescriptions: New Promethegan 25 mg suppository 25 mg [place] Q4H PRN (Reason: nausea and vomiting) Qty: 12 0RF No Action lisinopril 40 mg tablet 40 mg PO DAILY lisinopril 40 mg tablet 40 mg PO DAILY Qty: 30 0RF hydrochlorothiazide 12.5 mg tablet 12.5 mg PO QAM Qty: 30 0RF amoxicillin 875 mg tablet 875 mg PO BID 10 Days Qty: 20 0RF ibuprofen 600 mg tablet 600 mg PO Q8H PRN (Reason: pain) Qty: 60 0RF Discharge Orders: Discharge ED (Routine); Ordered 12/06/22 Ordered By: Jimenez Wolfe Referrals: Karan Kramer MD [Primary Care Provider] - Discharge Diet: Advance as tolerated Discharge Activity: Resume usual activity Patient Instructions: Opioid Safety, Pain Management Coding Level of Care Code ED Aquatic Centre Manager for Chg Arjun
== END 2022-12-06 21:51 | disposition home or self-care (01) ==
PROVIDERS: Emergency Medicine; Emergency Provider Family Medicine; PCP Family Medicine
DX: D69.6 Thrombocytopenia, unspecified (principal); R42 Dizziness and giddiness; E86.0 Dehydration
CPT/HCPCS: 36415; 80053; 81001; 82550; 85025; 99284; J3411; J3490; J7030

== ENCOUNTER 2023-02-16 12:46 | Emergency (ER) | payer OTHER, SELFPAY ==
[2023-02-16 12:50] VITALS: BP 143/88; PULSE 78; RESP 17; TEMP 36.6; O2SAT 97; BMI 37.1
--- NOTE | 2023-02-16 13:38 | W.ED.ABDPA2 ---
HPI - Abdominal Pain General: Chief Complaint: Abdominal Pain Stated Complaint: abd pain, was inpt at [facility] last week for spleen Time Seen by Provider: 02/16/23 12:50 History of Present Illness: Patient presents to the ER with worsening abdominal pain. Patient was inpatient [facility] last week and diagnosed with stage IV cirrhosis and a severely enlarged spleen and ascites. The pain now is radiating down the left abdomen all the way to his back. Patient had an MRI outpatient done yesterday does not have the results. Patient has extensive literature from the hospital includes H& P, CT of the abdomen with contrast, ultrasound of the liver, vascular surgery, general surgery, hospitalist reports. Patient is highly worried that he may be bleeding internally or may develop internal bleeding. Patient's is currently on a transplant list through [facility] but is not a candidate at this time. Review of Systems General: Reports: 10 or more systems reviewed and unremarkable except in HPI and below PFSH ED PFSH: Medical History HTN (hypertension) with goal to be determined Nonalcoholic fatty liver disease Peripheral edema Family History Father Hypertension Diabetes Denies family history of Stroke Social History Smoking and tobacco status: former smoker Alcohol intake: former Year of sobriety/quit date alcohol: 2009 Substance/Drug Use: former Date of last use: marijuana, meth, opiates Physical Exam Const: COMMON NORMALS: no acute distress, average body habitus, patient oriented x3, no limitations, alert and well nourished HENMT: COMMON NORMALS: normocephalic, atraumatic, hearing grossly normal bilaterally, external ears normal, Normal external nose present and moist oral mucous membranes HEAD & SCALP: normocephalic and atraumatic NOSE: Normal external nose present EXTERNAL EAR: Yes external ears normal Neck/C-Spine: COMMON NORMALS: no JVD Chest: COMMONS NORMALS: normal inspection of the chest and normal palpation of entire chest wall Resp: COMMON NORMALS: normal respiratory effort, No retractions, No use of accessory muscles and clear to auscultation bilaterally AUSCULTATION: clear to auscultation bilaterally Cardio: COMMON NORMALS: no JVD, regular rate, regular rhythm, S1 normal heart sound present, S2 normal heart sound present, No gallops present (Cardio), No clicks present (Cardio), No murmurs present (Cardio) and No rub (Cardio) RATE: regular rate RHYTHM: regular rhythm HEART SOUNDS: S1 normal heart sound present and S2 normal heart sound present GI: COMMON NORMALS: negative for Soft to palpation (Soft but tense), negative for non-tender (Tender throughout) and negative for No hepatosplenomegaly present (Positive hepatosplenomegaly) PALPATION: No Soft to palpation (Soft but tense) and No No hepatosplenomegaly present (Positive hepatosplenomegaly) Neuro: COMMON NORMALS: patient oriented x3 SENSORIUM/ORIENTATION: Yes alert Course Vital Signs: Vital signs: Vital Signs Temperature 98 F 02/16/23 12:50 Pulse Rate 77 02/16/23 14:30 Respiratory Rate 17 02/16/23 12:50 Blood Pressure 118/71 02/16/23 14:30 Pulse Oximetry 95 02/16/23 14:30 Oxygen Delivery Me thod Room Air 02/16/23 14:30 MDM - Abdominal Pain Medical Decision Making Patient had lab work as well as a CT scan done reimaged this was compared to his previous one in the notes of the hospital visit that the patient provided everything appears similar. Except the amount ascites it may be increased. I believe this is what the patient is having pain from. I will consult case management for outpatient paracentesis and provide the patient with a prescription for oxycodone for pain. Patient be discharged home Differential Diagnosis Likely abdominal pain; Unlikely acute appendicitis, calculus of kidney, constipation, diverticulitis, endometriosis, gastroenteritis, pancreatitis or small bowel obstruction Medical Records I reviewed the patient's medical records. Lab Data I reviewed the patient's lab results. 02/16/23 13:11 02/16/23 13:11 Labs/Radiology: Radiology Impressions Abdomen/Pelvis CT 02/16/23 13:41 IMPRESSION: 1. 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 2. Marked splenic enlargement is new since 10/13/2018. 3. 4.8 cm irregular hypodense subcapsular lesion in the inferior aspect of the spleen. The finding is new since 10/13/2018. Differential diagnosis includes splenic infarction, subcapsular hematoma, abscess and metastasis. Consider MRI. 4. Cirrhosis. 5. Moderate simple ascites. 6. Extensive intra-abdominal venous varices. 7. Trace left pleural effusion. 8. Decreased mali hepatis lymphadenopathy since 10/13/2018. 9. Incidental findings above. ADDENDUM: 02/16/23 [id number] THIS REPORT CONTAINS FINDINGS THAT MAY BE CRITICAL TO PATIENT CARE. The findings were verbally communicated via telephone conference with George Khoury at 2:28 PM CDT on 02/16/2023. The findings were acknowledged and understood. Laboratory Results WBC 3.24 10^3/uL (3.29-11.43) L 02/16/23 13:11 RBC 5.19 10^6/uL (3.85-5.65) 02/16/23 13:11 Hgb 15.60 g/dL (11.27-16.99) 02/16/23 13:11 Hct 47.1 % (37-53) 02/16/23 13:11 MCV 90.8 fl (82-101) 02/16/23 13:11 MCH 30.1 pg (27-33) 02/16/23 13:11 MCHC 33.1 g/dL (30-55) 02/16/23 13:11 RDW 13.2 % (12.1-15.1) 02/16/23 13:11 Plt Count 65 10^3/cmm (157-399) L 02/16/23 13:11 MPV 10.3 fL (7.4-10.4) 02/16/23 13:11 Neut % (Auto) 58.7 % 02/16/23 13:11 Lymph % (Auto) 25.0 % 02/16/23 13:11 [place] % (Auto) 15.1 % 02/16/23 13:11 Eos % (Auto) 0.9 % 02/16/23 13:11 Baso % (Auto) 0.3 % 02/16/23 13:11 Neut # (Auto) 1.90 10^3/uL (1.8-7.7) 02/16/23 13:11 Lymph # (Auto) 0.8 10^3/uL (0.8-4.8) 02/16/23 13:11 [place] # (Auto) 0.5 10^3/uL (0.2-0.9) 02/16/23 13:11 Eos # (Auto) 0.0 10^3/uL (0.0-0.8) 02/16/23 13:11 Baso # (Auto) 0.0 10^3/uL (0.0-0.1) 02/16/23 13:11 Nucleated RBC % (auto) 0 % 02/16/23 13:11 Nucleated RBCs # 0.0 /100WBC 02/16/23 13:11 Sodium 137 mmol/L (136-145) 02/16/23 13:11 Potassium 4.0 mmol/L (3.5-5.1) 02/16/23 13:11 Chloride 105 mmol/L (98-107) 02/16/23 13:11 Carbon Dioxide 21 mmol/L (22-29) L 02/16/23 13:11 Anion Gap 15.0 (5-19) 02/16/23 13:11 BUN 11 mg/dL (6-20) 02/16/23 13:11 Creatinine 0.6 mg/dL (0.7-1.2) L 02/16/23 13:11 GFR Calculation 150.0 mL/min (90-130) H 02/16/23 13:11 Glucose 83 mg/dL (65-115) 02/16/23 13:11 Calculated Osmolality 283 mOsm/kg (285-295) L 02/16/23 13:11 Calcium 8.7 mg/dL (8.5-10.5) 02/16/23 13:11 Total Bilirubin 0.9 mg/dL (0.15-1.2) 02/16/23 13:11 AST 37 U/L (0-40) 02/16/23 13:11 ALT 23 U/L (0-41) 02/16/23 13:11 Alkaline Phosphatase 77 U/L (40-130) 02/16/23 13:11 Total Protein 6.6 g/dL (6.6-8.7) 02/16/23 13:11 Albumin 3.0 g/dL (3.5-5.2) L 02/16/23 13:11 Globulin 3.6 g/dL (1.3-4.6) 02/16/23 13:11 Lipase 25 U/L (13-60) 02/16/23 13:11 Urine Color [place] (Yellow) 02/16/23 13:23 Urine Appearance Clear (CLEAR) 02/16/23 13:23 Urine pH 5 (5-7) 02/16/23 13:23 Ur Specific [place] 1.020 (1.005-1.030) 02/16/23 13:23 Urine Protein 1+ (Negative) H 02/16/23 13:23 Urine Glucose (UA) Norm (Normal) 02/16/23 13:23 Urine Ketones Negative (Negative) 02/16/23 13:23 Urine Blood 3+ (Negative) H 02/16/23 13:23 Urine Nitrate Negative (Negative) 02/16/23 13:23 Urine Bilirubin 1+ (Negative) H 02/16/23 13:23 Urine Urobilinogen 4 mg/dL (Negative) H 02/16/23 13:23 Ur Leukocyte Esterase Negative (Negative) 02/16/23 13:23 Urine RBC 10-15 /hpf (0-2) H 02/16/23 13:23 Urine WBC 5-10 /hpf (0-5) H 02/16/23 13:23 Ur Squamous Epith Cells Rare /hpf (0-5) 02/16/23 13:23 Amorphous Sediment 1+ /hpf 02/16/23 13:23 Urine Bacteria Trace /hpf (NONE) 02/16/23 13:23 Urine Mucus 1+ /hpf 02/16/23 13:23 All radiology interpretation(s) finalized by discharge Discharge Plan Discharge Patient Disposition: Home Clinical Impression: Nonalcoholic fatty liver disease Abdominal pain Qualifiers: Abdominal location: generalized Qualified Code(s): R10.84 - Generalized abdominal pain Abdominal ascites Qualifiers: Ascites type: other type Qualified Code(s): R18.8 - Other ascites Condition: Stable Prescriptions: New oxycodone 5 mg tablet 5 mg PO Q8H PRN (Reason: pain) Qty: 14 0RF No Action ibuprofen 600 mg tablet 600 mg PO Q8H PRN (Reason: pain) Qty: 60 0RF omeprazole 40 mg capsule,delayed release(DR/EC) 40 mg PO DAILY PRN (Reason: Acid Reflux) Eliquis DVT-PE Treat 30D Start 5 mg (74 tabs) tablets,dose pack See Rx Instructions .ROUTE .COMPLEX Rx Instructions: as directed on package Bariatric Multivitamins 45 mg iron- 800 mcg-120 mcg Capsule 1 cap PO DAILY Discharge Orders: Discharge ED (Routine); Ordered 02/16/23 Ordered By: George Khoury Referrals: Karan Kramer MD [Primary Care Provider] - 1 week Patient Instructions: Abdominal Pain (ED), Opioid Safety, Pain Management Activity Restrictions/Additional Instructions: He had been referred to case management for an outpatient paracentesis but should call you for Saturday to schedule at not please feel free to call them. Please take your pain medicine as directed. Coding Level of Care Code ED Bilingual Teacher Assistant for Román Díaz
--- NOTE | 2023-02-16 13:41 | CTR_ITS ---
PROCEDURE INFORMATION: Exam: CT Abdomen And Pelvis With Contrast Exam date and time: 02/16/2023 1:49 PM Age: 38 years old Clinical indication: Abdominal pain; Acute; Prior surgery; Surgery date: 6+ months; Surgery type: Gastric sleeve; Patient HX: H/o portal vein thrombosis; Additional info: Worsening abd pain, ascites, cirrhosis splenomegaly, , portal vein thrombosus TECHNIQUE: Imaging protocol: Computed tomography of the abdomen and pelvis with contrast. Radiation optimization: All CT scans at this facility use at least one of these dose optimization techniques: automated exposure control; mA and/or kV adjustment per patient size (includes targeted exams where dose is matched to clinical indication); or iterative reconstruction. Contrast material: OMNI 350; Contrast volume: 100 ml; Contrast route: INTRAVENOUS (IV); REPORTING DATA: Count of CT and Cardiac NM exams in prior 12 months: This patient has received 0 known CTs and 0 known cardiac nuclear medicine studies in the 12 months prior to the current study. COMPARISON: CT abdomen pelvis w con* [id number] 10/13/2018 1:14 PM RADIATION DOSE METRICS: Total DLP (mGy-cm): 1017.03 FINDINGS: Pleural spaces: Trace left pleural effusion. Liver: The liver has a nodular surface and there is relative hypertrophy of the left and caudate lobe consistent with cirrhosis. There is no focal liver abnormality. Gallbladder and bile ducts: The gallbladder is nondistended. The wall is hyperemic and mildly thickened, likely related to portal venous hypertension. No calcified stones are seen. There is no intrahepatic or extrahepatic bile duct dilation. Pancreas: The pancreas is unremarkable. Spleen: There is a small volume of subcapsular simple fluid along the posteromedial aspect of the spleen. The spleen is markedly enlarged. Spleen measures 23 cm in length. There is a focal irregular subcapsular hypodense lesion in the inferolateral margin aspect of the spleen measuring 4.8 x 4.1 cm axial and 3.8 cm craniocaudal dimension which is new since 10/13/2018. Small ill-defined multifocal hypodensities in the spleen more superiorly measuring up to 15 x 10 mm on axial series 3, image 22. Adrenal glands: The adrenal glands are unremarkable. Kidneys and ureters: The kidneys are unremarkable. No hydronephrosis or stones. No ureteral dilation. Stomach and bowel: There is a sleeve gastropexy without apparent complications. The small bowel is nondilated. The colon is unremarkable. Appendix: The appendix is normal. Intraperitoneal space: Moderate simple ascites. No intraperitoneal free air. Vasculature: The portal and splenic veins are enlarged and nonenhancing. Small gastric varices. Cavernous transformation of the portal vein.Extensive small omental and mesenteric varices. Large mesenteric varices in the right lower quadrant. Right gonadal vein varices. Small perirectal varices. The aorta is unremarkable. There is no aneurysm. Lymph nodes: No retroperitoneal, pelvic or inguinal lymphadenopathy. No mesenteric lymphadenopathy. Mildly decreased mali hepatis lymph node adenopathy since 10/13/2018. Urinary bladder: The urinary bladder is decompressed, preventing meaningful evaluation of wall thickness. Reproductive: The prostate and seminal vesicles are unremarkable. Bones/joints: There is moderate lower lumbar disc degeneration. The pelvis and hips are unremarkable. Soft tissues: There is a small fat containing umbilical hernia. CT/CT abdomen pelvis w con* [id number] IMPRESSION: 1. 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 2. Marked splenic enlargement is new since 10/13/2018. 3. 4.8 cm irregular hypodense subcapsular lesion in the inferior aspect of the spleen. The finding is new since 10/13/2018. Differential diagnosis includes splenic infarction, subcapsular hematoma, abscess and metastasis. Consider MRI. 4. Cirrhosis. 5. Moderate simple ascites. 6. Extensive intra-abdominal venous varices. 7. Trace left pleural effusion. 8. Decreased mali hepatis lymphadenopathy since 10/13/2018. 9. Incidental findings above.
[2023-02-16 13:48] LABS: Basophils % 0.3 %; Eosinophils % 0.9 %; Hematocrit 47.1 % (37-53); Lymphocytes # 0.8 10^3/uL (0.8-4.8); Mean Corpuscular HGB Conc 33.1 g/dL (30-55); Mean Corpuscular Hemoglobin 30.1 pg (27-33); Mean Corpuscular Volume 90.8 fl (82-101); Mean Platelet Volume 10.3 fL (7.4-10.4); Monocytes # 0.5 10^3/uL (0.2-0.9); Monocytes % 15.1 %; Neutrophils % 58.7 %; Nucleated Red Blood Cells % 0 %; Platelet Count 65 10^3/cmm (157-399); Red Blood Count 5.19 10^6/uL (3.85-5.65); Red Cell Distribution Width 13.2 % (12.1-15.1); White Blood Count 3.24 10^3/uL (3.29-11.43)
[2023-02-16] MEDS: iohexol 350 mg/mL 500 mL Btl (per mL) IV (13:52)
[2023-02-16 14:09] LABS: Urine Appearance Clear (CLEAR); Urine Color Amber (Yellow); pH Urine 5 (5-7)
[2023-02-16 14:09] LABS: Alanine Aminotransferase 23 U/L (0-41); Alkaline Phosphatase 77 U/L (40-130); Blood Urea Nitrogen 11 mg/dL (6-20); Calcium 8.7 mg/dL (8.5-10.5); Carbon Dioxide 21 mmol/L (22-29); Chloride 105 mmol/L (98-107); Globulin 3.6 g/dL (1.3-4.6); Glucose 83 mg/dL (65-115); Lipase 25 U/L (13-60); Osmolality Calculated 283 mOsm/kg (285-295); Sodium 137 mmol/L (136-145); Total Bilirubin 0.9 mg/dL (0.15-1.2); Total Protein 6.6 g/dL (6.6-8.7)
[2023-02-16 14:10] LABS: Bilirubin Urine 1+ (Negative); Blood Urine 3+ (Negative); Glucose Urine UA Norm (Normal); Ketones Urine Negative (Negative); Nitrate Urine Negative (Negative); Protein Urine 1+ (Negative); Urobilinogen Urine 4 mg/dL (Negative)
[2023-02-16 14:13] LABS: Add Urine Microscopic? YES; Leukocyte Esterase Urine Negative (Negative)
[2023-02-16 14:14] LABS: Aspartate Amino Transferase 37 U/L (0-40)
[2023-02-16 14:18] LABS: Squamous Epithelial Cell Urine RARE /hpf (0-5)
[2023-02-16 14:19] LABS: Add Urine Culture? Yes; Amorphous Sediment Urine 1+ /hpf; Bacteria Urine TRACE /hpf; Mucus Urine 1+ /hpf
[2023-02-16 14:30] VITALS: BP 118/71; PULSE 77; O2SAT 95
[2023-02-16 15:36] VITALS: BP 120/82; PULSE 84; O2SAT 96
--- NOTE | 2023-02-18 09:06 | PC.SOCIAL ---
Orders for [facility]acentesis [facility]ed to [facility] scheduling at this time. Appears patient has an appt in GI lab, today, however unable to reach them at this time.
== END 2023-02-16 15:37 | disposition home or self-care (01) ==
PROVIDERS: Emergency Provider Emergency Medicine; PCP Family Medicine
DX: R10.84 Generalized abdominal pain (principal); R18.8 Other ascites; K76.0 Fatty (change of) liver, not elsewhere classified; Z79.01 Long term (current) use of anticoagulants; K74.60 Unspecified cirrhosis of liver; I10 Essential (primary) hypertension; Z87.891 Personal history of nicotine dependence
CPT/HCPCS: 36415; 74177; 80053; 81001; 83690; 85025; 87086; 99285; Q9967

== ENCOUNTER 2023-03-10 14:46 | Emergency (ER) | payer OTHER, SELFPAY ==
[2023-03-10 14:49] VITALS: BP 131/79; PULSE 73; RESP 16; TEMP 36.8; O2SAT 97; BMI 34.4
--- NOTE | 2023-03-10 14:54 | ECG_ITS ---
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 Measurements Intervals [place] Rate: 68 P: 50 HI: 162 QRS: 3 QRSD: 89 T: 30 QT: 394 QTc: 421 Interpretive Statements SINUS RHYTHM WITH SINUS ARRHYTHMIA LOW QRS VOLTAGE IN PRECORDIAL LEADS [QRS DEFLECTION < 1.0 mV IN CHEST LEADS] Compared to ECG 02/18/2017 16:44:57 Low QRS voltage now present Electronically Signed On 03-10-2023 19:24:51 CDT by Nick Young M.D. [email or web address]
--- NOTE | 2023-03-10 15:09 | CTR_ITS ---
PROCEDURE INFORMATION: Exam: CTA Chest With Contrast Exam date and time: 03/10/2023 4:25 PM Age: 38 years old Clinical indication: Abdominal pain; Generalized; Chest pressure; Prior surgery; Surgery date: 6+ months; Surgery type: Gastric sleeve TECHNIQUE: Imaging protocol: Computed tomographic angiography of the chest with contrast. Exam focused on the arteries. 3D rendering (Not supervised by radiologist): MIP and/or 3D reconstructed images were created by the technologist. Radiation optimization: All CT scans at this facility use at least one of these dose optimization techniques: automated exposure control; mA and/or kV adjustment per patient size (includes targeted exams where dose is matched to clinical indication); or iterative reconstruction. Contrast material: OMNI 350; Contrast volume: 100 ml; Contrast route: INTRAVENOUS (IV); REPORTING DATA: Count of CT and Cardiac NM exams in prior 12 months: This patient has received [address] and 0 known cardiac nuclear medicine studies in the 12 months prior to the current study. COMPARISON: CR XR chest 1V portable [id number] 01/14/2021 3:22 PM RADIATION DOSE METRICS: Total DLP (mGy-cm): 1382.63 FINDINGS: Pulmonary arteries: Normal pulmonary arterial caliber. Irregular hypodensity within a subsegmental lingular artery is attributed to artifact given similar appearance to nearby pulmonary veins in an area of significant image degradation from cardiac motion artifact. Aorta: Unremarkable. No aortic aneurysm. Trachea: Expiratory phase imaging as evidenced by anterior bowing of the posterior tracheal membrane. Lungs: Dependent atelectasis. No consolidation. No mass. Pleural spaces: No pleural effusion or pneumothorax. Heart: Unremarkable. No cardiomegaly. No pericardial effusion. Lymph nodes: Unremarkable. No enlarged lymph nodes. Stomach and bowel: Positive oral contrast within the esophagus. No extraluminal oral contrast. Bones/joints: Unremarkable. No acute fracture. Soft tissues: Bilateral gynecomastia. PROCEDURE INFORMATION: Exam: CT Abdomen And Pelvis With Contrast Exam date and time: 03/10/2023 4:25 PM Age: 38 years old Clinical indication: Abdominal pain; Generalized; Chest pressure; Prior surgery; Surgery date: 6+ months; Surgery type: Gastric sleeve TECHNIQUE: Imaging protocol: Computed tomography of the abdomen and pelvis with contrast. Radiation optimization: All CT scans at this facility use at least one of these dose optimization techniques: automated exposure control; mA and/or kV adjustment per patient size (includes targeted exams where dose is matched to clinical indication); or iterative reconstruction. Contrast material: OMNI 350; Contrast volume: 100 ml; Contrast route: INTRAVENOUS (IV); REPORTING DATA: Count of CT and Cardiac NM exams in prior 12 months: This patient has received [address] and 0 known cardiac nuclear medicine studies in the 12 months prior to the current study. COMPARISON: CT abdomen pelvis w con* [id number] 02/16/2023 1:49 PM RADIATION DOSE METRICS: Total DLP (mGy-cm): 1382.63 FINDINGS: Liver: Diffusely nodular liver contour. No focal masses. Gallbladder and bile ducts: Normal. No calcified stones. No ductal dilation. Pancreas: Normal without ductal dilatation. Spleen: Massive splenomegaly measuring 22 cm in maximal dimension with mildly irregular peripheral inferolateral hypodensity measuring approximately 4.2 cm, stable from January 2023. Developed wedge-shaped 3.4 cm long peripheral anterolateral hypodensity in keeping with infarct. Adrenal glands: Normal. No mass. Kidneys and ureters: Normal. No hydronephrosis. Stomach and bowel: Postsurgical changes from prior gastric sleeve. Presence of intraluminal positive oral contrast without extraluminal contrast. No dilatation. No mucosal thickening. Appendix: Normal. Intraperitoneal space: Mild ascites, decreased from January 2023. No free air or well organized fluid collection. Vasculature: Mild aortoiliac atherosclerotic calcification without aneurysm. Redemonstrated splenic vein occlusion. There has been some retraction of the portal vein thrombus with central hypodensity and mild peripheral contrast enhancement. Again, there is cavernous transformation of the mali hepatis as well as numerous collaterals similar to prior. Lymph nodes: Intervally stable index upper abdominal lymph node measuring 1.8 cm in the short axis on axial image 33 of series 5. Urinary bladder: Urinary bladder is unremarkable. Reproductive: Unremarkable as visualized. Bones/joints: No acute fracture. Mild degenerative changes along the spine greatest at L4-L5 with posterior calcified annulus and mild spinal canal narrowing. Mild bilateral sacroiliac joint degenerative changes. Soft tissues: Small to moderate umbilical hernia. CT/CT angio chest w abd pel w con IMPRESSION: No convincing evidence of pulmonary emboli or other acute findings. IMPRESSION: 1. Massive splenomegaly with developed 3.4 cm peripheral hypodensity characteristic of infarct. Additional stable splenic hypodensity most likely represents infarct in the setting of splenic vein thrombosis. 2. Persistent portal vein thrombosis with interval mild decrease. Associated cavernous transformation redemonstrated. 3. Cirrhosis with decreased ascites. Extensive venous varices/collaterals redemonstrated. 4. Additional chronic and incidental findings as above.
--- NOTE | 2023-03-10 15:33 | ED_ITS ---
HPI - Abdominal Pain General: Chief Complaint: Abdominal Pain Stated Complaint: right side chest pain, had blood clots/spleen Time Seen by Provider: 03/10/23 15:09 History of Present Illness: Patient is a 38-year-old man that presents to the emergency department with abdominal pain, right upper quadrant that radiates into the back. Patient states onset of symptoms approximately 2 days ago. Patient was discharged on Saturday from [place]. Prior to that he was admitted to [facility] and prior to that another hospitalization. Approximately 6 weeks ago patient had developed abdominal pain and presented to the emergency department. He was found to have liver disease, portal vein thrombus, and multiple other VTE. He has been in and out of the hospital since and is currently being evaluated at [facility] for liver transplant. Patient reports that he developed a change in his abdominal discomfort. It is located right upper quadrant radiates into the flank. Patient denies nausea vomiting diarrhea or constipation. He has had increase in his GERD symptoms in the last 2 days. Due to his use of warfarin he had to stop taking his omeprazole. Patient was also recently diagnosed with bilateral pleural effusions, ascites, and multiple other VTE. Associated Symptoms: Reports heartburn; Denies bloating, chills, constipation, GI cramping, diarrhea, dysuria, fever(s), hematochezia, hematuria, nausea and vomiting Review of Systems General: Reports: 10 or more systems reviewed and unremarkable except in HPI and below Const: Reports: fatigue and malaise; Denies: fever(s), chills, change in appetite or change in weight Eyes: Denies: change in vision, eye discomfort, eye discharge or eye redness ENMT: Denies: throat pain, enlarged tonsils, odynophagia, hoarseness, ear or mastoid pain, ear discharge, change in hearing, tinnitus, nasal discharge, nasal congestion, post nasal drip or sinus pain Card: Denies: chest pain, palpitations, irregular heart rhythm, edema, dyspnea on exertion, orthopnea or leg pain with exertion Resp: Denies: dyspnea, productive cough, non-productive cough, wheezing, stridor or chest congestion GI: Reports: abdominal pain and heartburn; Denies: nausea, vomiting, dysphagia, diarrhea, constipation, bloating, GI cramping or hematochezia : Reports: flank pain; Denies: dysuria, urinary frequency, urinary urgency, urinary hesitancy, oliguria or hematuria Musc: Denies: neck pain, back pain, extremity pain, joint pain, joint swelling, joint redness, joint warmth or muscle weakness Skin/Breast: Denies: rash, pruritus, erythema, photosensitivity or new lesions Neuro: Denies: headache(s), numbness in extremities, weakness in extremities, sensory changes, lack of coordination, difficulty walking, frequent falls, dizziness, confusion, Slurred speech present, difficulty communicating thoughts, seizure-like activity or involuntary movements Endo: Denies: polyuria, polydipsia or tired all the time Derrick/Lymph: Denies: easy bruising or easy bleeding PFSH ED PFSH: Medical History HTN (hypertension) with goal to be determined Nonalcoholic fatty liver disease Peripheral edema Family History Father Hypertension Diabetes Denies family history of Stroke Social History Smoking and tobacco/nicotine status: former use of tobacco/nicotine Alcohol intake: former Year of sobriety/quit date alcohol: 2009 Substance/Drug Use: former Date of last use: marijuana, meth, opiates Physical Exam Const: COMMON NORMALS: no acute distress, patient oriented x3 and alert GENERAL APPEARANCE: cooperative ORIENTATION/CONSCIOUSNESS: Yes awake, Yes oriented to person, Yes oriented to place and Yes oriented to time HENMT: COMMON NORMALS: normocephalic and atraumatic HEAD & SCALP: normocephalic and atraumatic FACE & SINUS: normal facial exam MOUTH: Normal oral and palatal mucosa present THROAT: posterior oropharynx normal Eye: COMMON NORMALS: Equal, round and reactive pupils present, EOMs intact bilaterally, conjunctivae normal and no scleral icterus GENERAL EYE: appearance normal, both eyes and all related structures ALIGNMENT: Yes alignment normal PERIORBITAL: periorbital findings normal CONJUNCTIVA: Yes conjunctivae normal PUPIL: Yes Equal, round and reactive pupils present Neck/C-Spine: COMMON NORMALS: full ROM GENERAL: Yes normal visual inspection Lymph: LYMPHATIC: no lymphadenopathy noted Chest: COMMONS NORMALS: normal inspection of the chest Breast/axilla inspection: Yes no chest deformity, asymmetry, normal contours, no nodules, masses, tenderness Resp: COMMON NORMALS: normal respiratory effort, No retractions, No use of accessory muscles and clear to auscultation bilaterally (upper lobes) EFFORT & INSPECTION: Yes able to speak in complete sentences and Yes symmetric chest movement AUSCULTATION: clear to auscultation bilaterally (upper lobes) and diminished lung sounds bilateral in the lower lung fernandez Cardio: COMMON NORMALS: regular rate, regular rhythm and Peripheral pulses 2+ throughout RATE: regular rate RHYTHM: regular rhythm PERIPHERAL PULSES: Peripheral pulses 2+ throughout GI: COMMON NORMALS: Normal to inspection, nondistended, normoactive bowel sounds present, Soft to palpation, non-tender and No hepatosplenomegaly present INSPECTION: Yes normal to inspection AUSCULTATION: Yes normoactive bowel sounds PALPATION: Yes Soft to palpation, Yes Tenderness to palpation present (GI) Details: RUQ, Yes No hepatosplenomegaly present and Yes Ascites present RECTAL EXAM: Yes deferred Extremity: COMMON NORMALS: normal to inspection GENERAL: Yes normal exam except as noted Neuro: COMMON NORMALS: patient oriented x3 SENSORIUM/ORIENTATION: Yes alert, Yes oriented to person, Yes oriented to place and Yes oriented to time CRANIAL NERVES: Yes CN normal except as noted Psych: COMMON NORMALS: mental status grossly normal, Normal thought process present, cooperative, activity/motor behavior normal, denies homicidal ideation and denies suicidal ideation THOUGHT PROCESS: Normal thought process present Skin: COMMON NORMALS: no rashes or lesions noted, no wounds and turgor normal GENERAL SKIN EXAM: no rashes or lesions noted and turgor normal Course Vital Signs: Vital signs: Vital Signs Temperature 98.2 F 03/10/23 14:49 Pulse Rate 73 03/10/23 14:49 Respiratory Rate 16 03/10/23 14:49 Blood Pressure 131/79 03/10/23 14:49 Pulse Oximetry 97 03/10/23 14:49 Oxygen Delivery Me thod Room Air 03/10/23 14:49 MDM - Abdominal Pain Medical Decision Making Patient was evaluated in the emergency department due to new onset right upper quadrant abdominal discomfort with indigestion. Patient has a pretty extensive history in the last 6 weeks with multiple thrombus and organ dysfunction. Here in the emergency department I obtained laboratory studies as well as CT a chest with abdomen and pelvis to assess for additional thrombus. Patient care transferred to Dr. Khoury Lab Data 03/10/23 15:03/10/23: Labs/Radiology: Laboratory Results WBC 3.56 10^3/uL (3.29-11.43) 03/10/23 RBC 5.05 10^6/uL (3.85-5.65) 03/10/23: Hgb 14.70 g/dL (11.27-16.99) 03/10/23 Hct 44.0 % (37-53) 03/10/23: MCV 87.1 fl (82-101) 03/10/23 MCH 29.1 pg (27-33) 03/10/23 MCHC 33.4 g/dL (30-55) 03/10/23 RDW 13.4 % (12.1-15.1) 03/10/23 Plt Count 60 10^3/cmm (157-399) L 03/10/23 MPV 10.4 fL (7.4-10.4) 03/10/23: Neut % (Auto) 62.7 % 03/10/23: Lymph % (Auto) 25.8 % 03/10/23: Bertie % (Auto) 9.8 % 03/10/23 Eos % (Auto) 1.1 % 03/10/23 Baso % (Auto) 0.3 % 03/10/23 Neut # (Auto) 2.23 10^3/uL (1.8-7.7) 03/10/23 Lymph # (Auto) 0.9 10^3/uL (0.8-4.8) 03/10/23: Bertie # (Auto) 0.4 10^3/uL (0.2-0.9) 03/10/23 Eos # (Auto) 0.0 10^3/uL (0.0-0.8) 03/10/23 Baso # (Auto) 0.0 10^3/uL (0.0-0.1) 03/10/23 Nucleated RBC % (auto) 0 % 10/15/23 15:28 Nucleated RBCs # 0.0 /100WBC 03/10/23 15: PT 23.80 SECONDS (12.1-14.9) H 03/10/23 15: INR 2.04 (0.8-1.2) H 03/10/23 15: APTT 35.1 SECONDS (23.9-36.7) 03/10/23 15: Sodium 128 mmol/L (136-145) L 03/10/23: Potassium 4.2 mmol/L (3.5-5.1) 03/10/23: Chloride 94 mmol/L (98-107) L 03/10/23: Carbon Dioxide 25 mmol/L (22-29) 03/10/23: Anion Gap 13.2 (5-19) 03/10/23: BUN 17 mg/dL (6-20) 03/10/23: Creatinine 0.9 mg/dL (0.7-1.2) 03/10/23: GFR Calculation 93.9 mL/min (90-130) 03/10/23: Glucose 118 mg/dL (65-115) H 03/10/23 15: Calculated Osmolality 269 mOsm/kg (285-295) L 03/10/23: Lactic Acid 1.4 mmol/L (0.5-2.2) 03/10/23: Calcium 9.8 mg/dL (8.5-10.5) 03/10/23 15: Total Bilirubin 1.2 mg/dL (0.15-1.2) 03/10/23 15: AST 45 U/L (0-40) H 03/10/23 15: ALT 41 U/L (0-41) 03/10/23 15: Alkaline Phosphatase 80 U/L (40-130) 03/10/23 15: Total Protein 7.3 g/dL (6.6-8.7) 03/10/23 15: Albumin 4.0 g/dL (3.5-5.2) 03/10/23 15: Globulin 3.3 g/dL (1.3-4.6) 03/10/23: Lipase 29 U/L (13-60) 03/10/23 15:28 All radiology interpretation(s) finalized by discharge Discharge Plan Discharge Clinical Impression: Thrombocytopenia, Nonalcoholic fatty liver disease, Peripheral edema, BMI 45.0- 49.9, adult Condition: Stable Prescriptions: No Action ibuprofen 600 mg tablet 600 mg PO Q8H PRN (Reason: pain) Qty: 60 0RF omeprazole 40 mg capsule,delayed release(DR/EC) 40 mg PO DAILY PRN (Reason: Acid Reflux) Eliquis DVT-PE Treat 30D Start 5 mg (74 tabs) tablets,dose pack See Rx Instructions .ROUTE .COMPLEX Rx Instructions: as directed on package Bariatric Multivitamins 45 mg iron- 800 mcg-120 mcg Capsule 1 cap PO DAILY oxycodone 5 mg tablet 5 mg PO Q8H PRN (Reason: pain) Qty: 14 0RF Referrals: Karan Kramer MD [Primary Care Provider] - Coding Level of Care Code ED 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
[2023-03-10 15:42] LABS: Basophils % 0.3 %; Eosinophils % 1.1 %; Lymphocytes # 0.9 10^3/uL (0.8-4.8); Lymphocytes % 25.8 %; Mean Corpuscular HGB Conc 33.4 g/dL (30-55); Mean Corpuscular Hemoglobin 29.1 pg (27-33); Mean Corpuscular Volume 87.1 fl (82-101); Mean Platelet Volume 10.4 fL (7.4-10.4); Monocytes # 0.4 10^3/uL (0.2-0.9); Monocytes % 9.8 %; Neutrophils # 2.23 10^3/uL (1.8-7.7); Neutrophils % 62.7 %; Nucleated Red Blood Cells % 0 %; Platelet Count 60 10^3/cmm (157-399); Red Blood Count 5.05 10^6/uL (3.85-5.65); Red Cell Distribution Width 13.4 % (12.1-15.1); White Blood Count 3.56 10^3/uL (3.29-11.43)
[2023-03-10 15:56] LABS: INR 2.04 (0.8-1.2)
[2023-03-10 15:57] LABS: Partial Thromboplastin Time 35.1 SECONDS (23.9-36.7)
[2023-03-10 16:04] LABS: Lactic Sepsis W/Reflex 1.4 mmol/L (0.5-2.2)
[2023-03-10 16:05] LABS: Alanine Aminotransferase 41 U/L (0-41); Alkaline Phosphatase 80 U/L (40-130); Anion Gap 13.2 (5-19); Aspartate Amino Transferase 45 U/L (0-40); Blood Urea Nitrogen 17 mg/dL (6-20); Calcium 9.8 mg/dL (8.5-10.5); Carbon Dioxide 25 mmol/L (22-29); Chloride 94 mmol/L (98-107); Globulin 3.3 g/dL (1.3-4.6); Glomerular Filtration Rate 93.9 mL/min (90-130); Glucose 118 mg/dL (65-115); Lipase 29 U/L (13-60); Osmolality Calculated 269 mOsm/kg (285-295); Potassium 4.2 mmol/L (3.5-5.1); Sodium 128 mmol/L (136-145); Total Bilirubin 1.2 mg/dL (0.15-1.2); Total Protein 7.3 g/dL (6.6-8.7)
[2023-03-10] MEDS: sodium chloride 0.9% 1,000 ML 75 ML IV (16:11)
[2023-03-10] MEDS: iohexol 350 mg/mL 500 mL Btl (per mL) IV (16:27)
[2023-03-10] MEDS: barium sulfate 450 mL Oral Susp PO (16:29)
--- NOTE | 2023-03-10 18:31 | ED_ITS ---
HPI - Abdominal Pain General: Chief Complaint: Abdominal Pain Stated Complaint: right side chest pain, had blood clots/spleen Time Seen by Provider: 03/10/23 15:09 History of Present Illness: Took over care pending CT scan. CT scan discussed with patient. Given the CT scan findings I did recommend admission but patient declined admission at this time. She was given IV fluid to correct the low sodium. [facility] ED PFSH: Medical History HTN (hypertension) with goal to be determined Nonalcoholic fatty liver disease Peripheral edema Family History Father Hypertension Diabetes Denies family history of Stroke Social History Smoking and tobacco/nicotine status: former use of tobacco/nicotine Alcohol intake: former Year of sobriety/quit date alcohol: 2009 Substance/Drug Use: former Date of last use: marijuana, meth, opiates Course Vital Signs: Vital signs: Vital Signs Temperature 98.2 F 03/10/23 14:49 Pulse Rate 73 03/10/23 14:49 Respiratory Rate 16 03/10/23 14:49 Blood Pressure 131/79 03/10/23 14:49 Pulse Oximetry 97 03/10/23 14:49 Oxygen Delivery Me thod Room Air 03/10/23 14:49 MDM - Abdominal Pain Medical Decision Making I offered admission for pain control and further evaluation but patient declin ed. Discussed CT finding with the patient and . Close follow-up PCP recommended for further evaluation and treatment. To continue Coumadin as directed. Lab Data 03/10/23 15:28 03/10/23 15:28 Labs/Radiology: Radiology Impressions Chest/Abdomen/Pelvis CT 03/10/23 15:09 IMPRESSION: No convincing evidence of pulmonary emboli or other acute findings. IMPRESSION: 1. Massive splenomegaly with developed 3.4 cm peripheral hypodensity characteristic of infarct. Additional stable splenic hypodensity most likely represents infarct in the setting of splenic vein thrombosis. 2. Persistent portal vein thrombosis with interval mild decrease. Associated cavernous transformation redemonstrated. 3. Cirrhosis with decreased ascites. Extensive venous varices/collaterals redemonstrated. 4. Additional chronic and incidental findings as above. Laboratory Results WBC 3.56 10^3/uL (3.29-11.43) 03/10/23: RBC 5.05 10^6/uL (3.85-5.65) 03/10/23 15: Hgb 14.70 g/dL (11.27-16.99) 03/10/23: Hct 44.0 % (37-53) 03/10/23: MCV 87.1 fl (82-101) 03/10/23: MCH 29.1 pg (27-33) 03/10/23: MCHC 33.4 g/dL (30-55) 03/10/23 RDW 13.4 % (12.1-15.1) 03/10/23 Plt Count 60 10^3/cmm (157-399) L 03/10/23 MPV 10.4 fL (7.4-10.4) 03/10/23: Neut % (Auto) 62.7 % 03/10/23: Lymph % (Auto) 25.8 % 03/10/23: Leon % (Auto) 9.8 % 03/10/23: Eos % (Auto) 1.1 % 03/10/23 Baso % (Auto) 0.3 % 03/10/23 Neut # (Auto) 2.23 10^3/uL (1.8-7.7) 03/10/23 Lymph # (Auto) 0.9 10^3/uL (0.8-4.8) 03/10/23: Leon # (Auto) 0.4 10^3/uL (0.2-0.9) 03/10/23: Eos # (Auto) 0.0 10^3/uL (0.0-0.8) 03/10/23: Baso # (Auto) 0.0 10^3/uL (0.0-0.1) 03/10/23: Nucleated RBC % (auto) 0 % 03/10/23:28 Nucleated RBCs # 0.0 /100WBC 03/10/23 15: PT 23.80 SECONDS (12.1-14.9) H 03/10/23 15: INR 2.04 (0.8-1.2) H 03/10/23 15: APTT 35.1 SECONDS (23.9-36.7) 03/10/23 15: Sodium 128 mmol/L (136-145) L 03/10/23: Potassium 4.2 mmol/L (3.5-5.1) 03/10/23 15: Chloride 94 mmol/L (98-107) L 03/10/23: Carbon Dioxide 25 mmol/L (22-29) 03/10/23: Anion Gap 13.2 (5-19) 03/10/23: BUN 17 mg/dL (6-20) 03/10/23: Creatinine 0.9 mg/dL (0.7-1.2) 03/10/23: GFR Calculation 93.9 mL/min (90-130) 03/10/23: Glucose 118 mg/dL (65-115) H 03/10/23 15: Calculated Osmolality 269 mOsm/kg (285-295) L 03/10/23: Lactic Acid 1.4 mmol/L (0.5-2.2) 03/10/23 15: Calcium 9.8 mg/dL (8.5-10.5) 03/10/23 15: Total Bilirubin 1.2 mg/dL (0.15-1.2) 03/10/23 15: AST 45 U/L (0-40) H 03/10/23 15: ALT 41 U/L (0-41) 03/10/23 15: Alkaline Phosphatase 80 U/L (40-130) 03/10/23 15: Total Protein 7.3 g/dL (6.6-8.7) 03/10/23 15: Albumin 4.0 g/dL (3.5-5.2) 03/10/23 15: Globulin 3.3 g/dL (1.3-4.6) 03/10/23: Lipase 29 U/L (13-60) 10/15/23 15:28 XR interpretation done by ED provider, pending radiology final review Discharge Plan Discharge Patient Disposition: Home Clinical Impression: Thrombocytopenia, Nonalcoholic fatty liver disease, Peripheral edema, BMI 45.0- 49.9, adult, Hyponatremia Condition: Stable Prescriptions: No Action ibuprofen 600 mg tablet 600 mg PO Q8H PRN (Reason: pain) Qty: 60 0RF omeprazole 40 mg capsule,delayed release(DR/EC) 40 mg PO DAILY PRN (Reason: Acid Reflux) Eliquis DVT-PE Treat 30D Start 5 mg (74 tabs) tablets,dose pack See Rx Instructions .ROUTE .COMPLEX Rx Instructions: as directed on package Bariatric Multivitamins 45 mg iron- 800 mcg-120 mcg Capsule 1 cap PO DAILY oxycodone 5 mg tablet 5 mg PO Q8H PRN (Reason: pain) Qty: 14 0RF Discharge Orders: Discharge ED (Routine); Ordered 03/10/23 Ordered By: Jimenez Wolfe Referrals: Karan Kramer MD [Primary Care Provider] - Discharge Diet: Advance as tolerated Discharge Activity: Resume usual activity Patient Instructions: Opioid Safety, Pain Management Sign Out Sign Out Data: Patient Sign Out occurred on 03/10/23 at 16:58. Patient's care was discussed, and care was transferred from to [facility]. 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
[2023-03-10 18:42] VITALS: BP 134/114; PULSE 64; RESP 16; O2SAT 99
== END 2023-03-10 18:45 | disposition home or self-care (01) ==
PROVIDERS: Nurse Practitioner; Emergency Provider Family Medicine; PCP Family Medicine
DX: D69.6 Thrombocytopenia, unspecified (principal); K76.0 Fatty (change of) liver, not elsewhere classified; R60.0 Localized edema; Z68.42 Body mass index [BMI] 45.0-49.9, adult; Z79.01 Long term (current) use of anticoagulants; I10 Essential (primary) hypertension; Z87.891 Personal history of nicotine dependence
CPT/HCPCS: 36415; 71275; 74177; 80053; 83605; 83690; 85025; 85610; 85730; 93005; 99285; J7030; Q9967

== ENCOUNTER → 2023-04-03 12:56 | Outpatient (BNVA) | payer OTHER, SELFPAY | PROVIDERS: PCP Family Medicine; Visit Provider Nurse Practitioner Family | DX: Z79.01 Long term (current) use of anticoagulants (principal); K74.60 Unspecified cirrhosis of liver; R18.8 Other ascites; I81 Portal vein thrombosis; R16.1 Splenomegaly, not elsewhere classified; R60.9 Edema, unspecified; L29.9 Pruritus, unspecified | CPT/HCPCS: 85610 ==

== ENCOUNTER 2023-08-22 19:05 | Emergency (ER) | payer MEDICAID, SELFPAY ==
[2023-08-22] VITALS (7 sets, daily range): BP systolic 112–127; BP diastolic 49–75; PULSE 64–81; RESP 14–20; TEMP 36.6; O2SAT 97–100
--- NOTE | 2023-08-22 19:18 | ED_ITS ---
HPI - Abdominal Pain 2 General: Chief Complaint: Abdominal Pain Stated Complaint: Toxin In Brain\Liver Time Seen by Provider: 08/22/23 19:18 History of Present Illness: 38-year-old male presents emergency depa rtment with complaints of abdominal pain that radiates around to his back. He states he has had these symptoms ongoing for the previous 2 weeks. He states he does have a history of cirrhosis. Associated Symptoms: Reports nausea Review of Systems 2 General: Reports: 10 or more systems reviewed and unremarkable except in HPI and below GI: Reports: abdominal pain and nausea PFSH ED 2 PFSH: Medical History HTN (hypertension) with goal to be determined Nonalcoholic fatty liver disease Peripheral edema Family History Father Hypertension Diabetes Denies family history of Stroke Social History Smoking and tobacco/nicotine status: former use of tobacco/nicotine Alcohol intake: former Year of sobriety/quit date alcohol: 2009 Substance/Drug Use: former Date of last use: marijuana, meth, opiates Physical Exam 2 Narrative: EXAM NARRATIVE: Constitutional: the patient appears well nourished and of normal development. Vital signs as documented. No acute distress at present. Alert and oriented-to person, place, time and situation. Head, eyes, ears, nose, mouth, throat: Normocephalic, atraumatic. Pupils-equal, round, reactive to light. No scleral icterus. Normal-appearing external ears. Normal appearing nasal turbinates, no drainage. No obvious oral lesions, posterior oropharynx without erythema or exudates. Neck: Supple, trachea is midline, no lymphadenopathy, no jugular venous distension, thyromegaly, or carotid bruits. Carotid upstrokes are brisk bilaterally. Lungs: clear to auscultation to all lung fernandez. Symmetrical rise and fall of chest, no obvious signs of increased work of breathing at present. Cardiac: Regular rate and rhythm, positive S1, S2. No murmurs, rubs or gallops that I can appreciate Abdomen: Soft, non-tender to palpation, normal active bowel sounds to all quadrants. No palpable masses, no organomegaly and abdominal bruits. Extremities: 2+ pulses in the upper extremities that are equal bilaterally, 2+ pulses in the lower extremities that are equal bilaterally. Non-edematous. Moves all extremities well, sensation to all extremities are noted. Skin: Warm, dry, intact. 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 The CBC did show a neutropenia at 2.55 his hemoglobin hematocrit are within normal limits, platelets were 51 consistent with thrombocytopenia, does appear that the comparison on 03/10/2023 was 60. His ammonia level was 49 and lactic acid was 1.9. CT scan of the abdomen pelvis demonstrated splenomegaly with decreased in size from previous. Cirrhosis of the liver was also noted with resolved ascites compared to previous study. 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 There are multiple venous collaterals noted. Patient was provided morphine for pain control as well as Zofran for his nausea. He was advised to continue with his oxycodone and discussed pain control with his pain management physician or primary care physician. 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 Medical Records I reviewed the patient's medical records. Lab Data I reviewed the patient's lab results. 08/22/23 19:28 08/22/23 19:28 Labs/Radiology: Radiology Impressions Abdomen/Pelvis CT 08/22/23 19:43 IMPRESSION: 1. Splenomegaly with interval decrease in size of the previously noted infarct. 2. Cirrhosis with resolved ascites when compared to the previous study. 3. Portal vein thrombosis with cavernous transformation of the mali hepatis. Multiple venous collaterals noted. COMMENTS: Consistent with the [employer]'s Incidental Findings Committee white paper (J Am Shagufta Radiol 2018): Any incidental renal lesion less than 1 cm or classified as too small to characterize, or any incidental cystic renal lesion characterized as simple-appearing, is likely benign. No follow-up imaging is recommended for these lesions per consensus recommendations based on imaging criteria. Laboratory Results WBC 2.55 10^3/uL (3.29-11.43) L 08/22/23 19: RBC 4.16 10^6/uL (3.85-5.65) 08/22/23: Hgb 13.30 g/dL (11.27-16.99) 08/22/23 19: Hct 38.4 % (37-53) 08/22/23: MCV 92.3 fl (82-101) 08/22/23: MCH 32.0 pg (27-33) 08/22/23: MCHC 34.6 g/dL (30-55) 08/22/23: RDW 14.9 % (12.1-15.1) 08/22/23: Plt Count 51 10^3/cmm (157-399) L 08/22/23: MPV 9.2 fL (7.4-10.4) 08/22/23: Neut % (Auto) 58.0 % 08/22/23: Lymph % (Auto) 31.0 % 08/22/23: [place] % (Auto) 9.4 % 08/22/23: Eos % (Auto) 1.6 % 08/22/23: Baso % (Auto) 0.0 % 08/22/23: Neut # (Auto) 1.48 10^3/uL (1.8-7.7) L 08/22/23: Lymph # (Auto) 0.8 10^3/uL (0.8-4.8) 08/22/23: [place] # (Auto) 0.2 10^3/uL (0.2-0.9) 08/22/23 19: Eos # (Auto) 0.0 10^3/uL (0.0-0.8) 08/22/23: Baso # (Auto) 0.0 10^3/uL (0.0-0.1) 08/22/23: Nucleated RBC % (auto) 0 % 08/22/23 19: Nucleated RBCs # 0.0 /100WBC 08/22/23 19: PT 17.00 SECONDS (12.1-14.9) H 08/22/23 20:10 INR 1.34 (0.8-1.2) H 08/22/23 20:10 Sodium 141 mmol/L (136-145) 08/22/23 19:28 Potassium 3.6 mmol/L (3.5-5.1) 08/22/23 19: Chloride 106 mmol/L (98-107) 08/22/23 19: Carbon Dioxide 25 mmol/L (22-29) 08/22/23: Anion Gap 13.6 (5-19) 08/22/23 19: BUN 11 mg/dL (6-20) 08/22/23 19: Creatinine 0.8 mg/dL (0.7-1.2) 08/22/23 19: GFR Calculation 107.6 mL/min (90-130) 08/22/23 19: Glucose 79 mg/dL (65-115) 08/22/23 19: Calculated Osmolality 290 mOsm/kg (285-295) 08/22/23 19: Lactic Acid 1.9 mmol/L (0.5-2.2) 08/22/23 20:10 Calcium 8.7 mg/dL (8.5-10.5) 08/22/23 19: Total Bilirubin 0.6 mg/dL (0.15-1.2) 08/22/23 19: AST 24 U/L (0-40) 08/22/23 19: ALT 27 U/L (0-41) 08/22/23 19:28 Alkaline Phosphatase 75 U/L (40-130) 08/22/23 19: Ammonia 49 umol/L (16-60) 08/22/23 20:10 Total Protein 6.4 g/dL (6.6-8.7) L 08/22/23 19:28 Albumin 3.7 g/dL (3.5-5.2) 08/22/23 19:28 Globulin 2.7 g/dL (1.3-4.6) 08/22/23 19:28 Lipase 19 U/L (13-60) 08/22/23 19:28 Procalcitonin 0.05 ng/mL (0-0.5) 08/22/23 20:10 Urine Color Yellow (Yellow) 08/22/23 19:48 Urine Appearance Clear (CLEAR) 08/22/23 19:48 Urine pH 5 (5-7) 08/22/23 19:48 Ur Specific [place] 1.020 (1.005-1.030) 08/22/23 19:48 Urine Protein Neg (Negative) 08/22/23 19:48 Urine Glucose (UA) Norm (Normal) 08/22/23 19:48 Urine Ketones Negative (Negative) 08/22/23 19:48 Urine Blood 3+ (Negative) H 08/22/23 19:48 Urine Nitrate Negative (Negative) 08/22/23 19:48 Urine Bilirubin Neg (Negative) 08/22/23 19:48 Urine Urobilinogen Norm mg/dL (Negative) 08/22/23 19:48 Ur Leukocyte Esterase Negative (Negative) 08/22/23 19:48 Urine RBC 5-10 /hpf (0-2) H 08/22/23 19:48 Urine WBC None /hpf (0-5) 08/22/23 19:48 Ur Squamous Epith Cells None /hpf (0-5) 08/22/23 19:48 Amorphous Sediment Not Reportable 08/22/23 19:48 Urine Bacteria None /hpf (NONE) 08/22/23 19:48 Urine Mucus Trace /hpf 08/22/23 19:48 Urine Opiates Screen Negative ng/mL (Negative) 08/22/23 19:48 Ur Barbiturates Screen Negative ng/mL (Negative) 08/22/23 19:48 Ur Phencyclidine Scrn Negative ng/mL (Negative) 08/22/23 19:48 Ur Amphetamines Screen Negative ng/mL (Negative) 08/22/23 19:48 U Benzodiazepines Scrn Positive ng/mL (Negative) H 08/22/23 19:48 Urine Cocaine Screen Negative ng/mL (Negative) 08/22/23 19:48 U Marijuana (THC) Screen Negative ng/mL (Negative) 08/22/23 19:48 All radiology interpretation(s) finalized by discharge Discharge Plan Discharge Patient Disposition: Home Clinical Impression: Nonalcoholic fatty liver disease, Abdominal pain, Thrombocytopenia, Neutropenia Hepatic cirrhosis Qualifiers: Hepatic cirrhosis type: unspecified hepatic cirrhosis Ascites presence: with ascites Qualified Code(s): K74.60 - Unspecified cirrhosis of liver Condition: Stable Prescriptions: No Action warfarin 4 mg tablet 4 mg PO DAILY warfarin 3 mg tablet 3 mg PO DAILY spironolactone 100 mg tablet 100 mg PO DAILY tamsulosin 0.4 mg capsule 0.4 mg PO DAILY furosemide [Lasix] 40 mg tablet 40 mg PO DAILY potassium chloride 10 mEq capsule, extended release 10 meq PO DAILY lactulose 20 gram/30 mL solution 30 g PO TID ammonia lac as directed famotidine 40 mg tablet 40 mg PO DAILY ondansetron 8 mg tablet,disintegrating 8 mg PO Q8H ibuprofen 600 mg tablet 600 mg PO Q8H PRN (Reason: pain) Qty: 60 0RF omeprazole 40 mg capsule,delayed release(DR/EC) 40 mg PO DAILY PRN (Reason: Acid Reflux) Bariatric Multivitamins 45 mg iron- 800 mcg-120 mcg Capsule 1 cap PO DAILY oxycodone 5 mg tablet 5 mg PO Q8H PRN (Reason: pain) Qty: 14 0RF Discharge Orders: Discharge ED (Routine); Ordered 08/22/23 Ordered By: Lucho Gay Referrals: Karan Kramer MD [Primary Care Provider] - Discharge Diet: Usual diet Discharge Activity: Resume usual activity Patient Instructions: Abdominal Pain (ED), Opioid Safety, Pain Management Activity Restrictions/Additional Instructions: Activity Restrictions/Additional Instructions: Thank you for choosing [facility] for your healthcare needs today. Please realize that you were seen in the Emergency Department and that we are providing you with an emergency medical screening exam and this may not be a complete and all inclusive of all the testing and or medical work-up that you may need to determine your ailment or severity of your illness. It is very important that you follow-up as instructed with your Primary care provider or Specialist for additional evaluation and to discuss your medical treatment plan. Coding Level of Care Code ED Clinical Outcomes Manager for Román Díaz
[2023-08-22 19:33] LABS: Eosinophils % 1.6 %; Hematocrit 38.4 % (37-53); Lymphocytes # 0.8 10^3/uL (0.8-4.8); Mean Corpuscular HGB Conc 34.6 g/dL (30-55); Mean Corpuscular Volume 92.3 fl (82-101); Mean Platelet Volume 9.2 fL (7.4-10.4); Monocytes # 0.2 10^3/uL (0.2-0.9); Monocytes % 9.4 %; Neutrophils # 1.48 10^3/uL (1.8-7.7); Nucleated Red Blood Cells % 0 %; Platelet Count 51 10^3/cmm (157-399); Red Blood Count 4.16 10^6/uL (3.85-5.65); Red Cell Distribution Width 14.9 % (12.1-15.1); White Blood Count 2.55 10^3/uL (3.29-11.43)
--- NOTE | 2023-08-22 19:43 | CTR_ITS ---
PROCEDURE INFORMATION: Exam: CT Abdomen And Pelvis With Contrast Exam date and time: 08/22/2023 7:55 PM Age: 38 years old Clinical indication: Abdominal pain; Generalized; Prior surgery; Surgery date: 6+ months; Surgery type: Gastric sleeve; Patient HX: HX cirrhosis TECHNIQUE: Imaging protocol: Computed tomography of the abdomen and pelvis with contrast. Radiation optimization: All CT scans at this facility use at least one of these dose optimization techniques: automated exposure control; mA and/or kV adjustment per patient size (includes targeted exams where dose is matched to clinical indication); or iterative reconstruction. Contrast material: OMNI 350; Contrast volume: 100 ml; Contrast route: INTRAVENOUS (IV); COMPARISON: CT angio chest w abd pel w con 03/10/2023 4:25 PM RADIATION DOSE METRICS: Total DLP (mGy-cm): 796.54 FINDINGS: Lungs: Lung bases are unremarkable. Liver: There is a nodular contour to the surface of the liver. Left lobe of the liver is enlarged. there is cavernous transformation of the mali hepatis. Gallbladder and bile ducts: Gallbladder is distended with multiple varices surrounding it. Pancreas: The pancreas is unremarkable. Spleen: The spleen is enlarged measuring 20.5 mm in length. Interval decrease in the hypodensity within the posterior aspect of the spleen, currently measures 21.3 mm, previously measured 33.5 mm of the same level. This likely represents an infarct. Adrenal glands: Adrenal glands are unremarkable. Kidneys and ureters: No hydronephrosis or nephrolithiasis. Bilateral simple renal cysts are present, as well as other subcentimeter hypodensities which are too small to characterize. Stomach and bowel: Post gastric sleeve resection, anastomotic site is visualized. There are prominent small bowel loops with no evidence of obstruction. Appendix: Normal appendix. Intraperitoneal space: No free intraperitoneal air. No fluid collection. Vasculature: Occlusion of splenic vein. Multiple slight interval decrease in the abdominal node which now measures 8 mm in short axis. varices noted in this spleen, mesenteric, gastroesophageal and mali hepatis regions. There is no aortic aneurysm. Lymph nodes: There are no enlarged nodes. Urinary bladder: Urinary bladder is not distended, the delacruz are thickened likely secondary to underdistention. Reproductive: Visualized portions of the male reproductive tract are unremarkable, though routine CT is limited in this regard. Bones/joints: No acute osseous abnormality. Soft tissues: There is a moderate-sized fat containing umbilical hernia, there also vessels within this herniation and no evidence of obstruction. CT/CT abdomen pelvis w con* [id number] IMPRESSION: 1. Splenomegaly with interval decrease in size of the previously noted infarct. 2. Cirrhosis with resolved ascites when compared to the previous study. 3. Portal vein thrombosis with cavernous transformation of the mali hepatis. Multiple venous collaterals noted. COMMENTS: Consistent with the [employer]'s Incidental Findings Committee white paper (J Am Shagufta Radiol 2018): Any incidental renal lesion less than 1 cm or classified as too small to characterize, or any incidental cystic renal lesion characterized as simple-appearing, is likely benign. No follow-up imaging is recommended for these lesions per consensus recommendations based on imaging criteria.
[2023-08-22] MEDS: iohexol 350 mg/mL 500 mL Btl (per mL) IV (19:55)
[2023-08-22 20:07] LABS: Alanine Aminotransferase 27 U/L (0-41); Albumin Level 3.7 g/dL (3.5-5.2); Alkaline Phosphatase 75 U/L (40-130); Anion Gap 13.6 (5-19); Aspartate Amino Transferase 24 U/L (0-40); Blood Urea Nitrogen 11 mg/dL (6-20); Calcium 8.7 mg/dL (8.5-10.5); Carbon Dioxide 25 mmol/L (22-29); Chloride 106 mmol/L (98-107); Creatinine Clr Calc Pharmacy 142.0214; Globulin 2.7 g/dL (1.3-4.6); Glomerular Filtration Rate 107.6 mL/min (90-130); Glucose 79 mg/dL (65-115); Lipase 19 U/L (13-60); Osmolality Calculated 290 mOsm/kg (285-295); Potassium 3.6 mmol/L (3.5-5.1); Sodium 141 mmol/L (136-145); Total Bilirubin 0.6 mg/dL (0.15-1.2); Total Protein 6.4 g/dL (6.6-8.7)
[2023-08-22 20:15] LABS: Add Urine Microscopic? YES; Bilirubin Urine Neg (Negative); Blood Urine 3+ (Negative); Glucose Urine UA Norm (Normal); Ketones Urine Negative (Negative); Leukocyte Esterase Urine Negative (Negative); Nitrate Urine Negative (Negative); Protein Urine Neg (Negative); Urine Appearance Clear (CLEAR); Urine Color Yellow (Yellow); Urobilinogen Urine Norm (Negative); pH Urine 5 (5-7)
[2023-08-22 20:19] LABS: Add Urine Culture? No; Mucus Urine TRACE /hpf
[2023-08-22 20:23] LABS: Amphetamines Screen Urine Negative (Negative); Barbiturates Screen Urine Negative (Negative); Benzodiazepines Screen Urine Positive (Negative); Cocaine Screen Urine Negative (Negative); Opiate Screen Urine Negative (Negative); PCP Screen Urine Negative (Negative); THC Screen Urine Negative (Negative)
[2023-08-22 20:38] LABS: INR 1.34 (0.8-1.2)
[2023-08-22 20:51] LABS: Ammonia 49 umol/L (16-60); Lactic Sepsis W/Reflex 1.9 mmol/L (0.5-2.2)
[2023-08-22 20:55] LABS: Procalcitonin 0.05 ng/mL (0-0.5)
[2023-08-22] MEDS: ondansetron 2 mg/ML SDV 2 mL 4 MG IVP (21:00)
[2023-08-22] MEDS: morphine 4 mg/mL SDV 1 mL IVP (21:01)
== END 2023-08-22 21:56 | disposition home or self-care (01) ==
PROVIDERS: Emergency Provider Internal Medicine; PCP Family Medicine
DX: K74.60 Unspecified cirrhosis of liver (principal); K76.0 Fatty (change of) liver, not elsewhere classified; D69.6 Thrombocytopenia, unspecified; D70.9 Neutropenia, unspecified; R10.9 Unspecified abdominal pain; Z79.01 Long term (current) use of anticoagulants; Z87.891 Personal history of nicotine dependence; I10 Essential (primary) hypertension
CPT/HCPCS: 36415; 74177; 80053; 80306; 81001; 82140; 83605; 83690; 84145; 85025; 85610; 96374; 96375; 99285; J2270; J2405; Q9967

== ENCOUNTER 2024-08-16 14:12 | Emergency (ER) | payer MEDICAID, SELFPAY ==
[2024-08-16 14:14] VITALS: BP 142/96; PULSE 86; RESP 16; TEMP 36.6; O2SAT 98; BMI 35.9
--- NOTE | 2024-08-16 14:50 | W.ED.ABDPA2 ---
HPI - Abdominal Pain General: Chief Complaint: Abdominal Pain Stated Complaint: abd pain Time Seen by Provider: 08/16/24 14:38 Source: patient Mode of arrival: ambulatory Limitations: no limitations History of Present Illness: 39-year-old male states that last 2 days been having abdominal pain states he been having vomiting along with nausea today. States his pain has been diffuse in nature and crampy. Has had a history of gastric sleeve 2 years ago also has a history of nonalcoholic fatty liver disease and cirrhosis. He denies any fever denies any diarrhea Associated Symptoms: Reports nausea and vomiting; Denies chills, diarrhea, dysuria and fever(s) Related Data Home Medications ?Medication ?Instructions ?Recorded ?Confirmed spironolactone 100 mg tablet 100 mg PO DAILY 04/03/23 08/16/24 alprazolam 0.5 mg tablet 0.5 - 1 mg PO Q6H 08/16/24 08/16/24 apixaban 2.5 mg tablet (Eliquis) 2.5 mg PO BID 08/16/24 08/16/24 bumetanide 1 mg tablet 3 mg PO DAILY 08/16/24 08/16/24 desvenlafaxine succinate 100 mg 100 mg PO DAILY 08/16/24 08/16/24 tablet,extended release 24 hr gabapentin 800 mg tablet 800 mg PO Q8H 08/16/24 08/16/24 lactulose 10 gram/15 mL oral 30 ml PO BID 08/16/24 08/16/24 solution (Enulose) linaclotide 145 mcg capsule 145 mcg PO DAILY 08/16/24 08/16/24 (Linzess) nadolol 20 mg tablet 20 mg PO DAILY 08/16/24 08/16/24 nortriptyline 25 mg capsule 25 mg PO QPM 08/16/24 08/16/24 ondansetron HCl 8 mg tablet 8 mg PO Q8H 08/16/24 08/16/24 oxycodone 10 mg tablet 10 mg PO QID 08/16/24 08/16/24 pantoprazole 40 mg tablet,delayed 40 mg PO BID 08/16/24 08/16/24 release rifaximin 550 mg tablet (Xifaxan) 550 mg PO BID 08/16/24 08/16/24 Previous Rx's ?Medication ?Instructions ?Recorded ondansetron 4 mg disintegrating 4 mg PO Q6H PRN nausea and 08/16/24 tablet vomiting #14 tabs Allergies Allergy/AdvReac Type Severity Reaction Status Date / Time No Known Allergies Allergy Verified 04/03/23 12:48 Review of Systems Const: Denies: fever(s), chills, body aches or change in appetite ENMT: Denies: throat pain or dental pain Card: Denies: chest pain Resp: Denies: dyspnea GI: Reports: abdominal pain, nausea and vomiting; Denies: diarrhea : Denies: dysuria Musc: Denies: neck pain or back pain Skin/Breast: Denies: rash Neuro: Denies: headache(s) PFSH ED PFSH: Medical History HTN (hypertension) with goal to be determined Peripheral edema Nonalcoholic fatty liver disease Family History Father Hypertension Diabetes Denies family history of Stroke Social History Smoking and tobacco/nicotine status: former use of tobacco/nicotine Alcohol intake: former Year of sobriety/quit date alcohol: 2009 Substance/Drug Use: former Date of last use: marijuana, meth, opiates Physical Exam Const: COMMON NORMALS: no acute distress, patient oriented x3 and healthy appearing HENMT: COMMON NORMALS: normocephalic and atraumatic HEAD & SCALP: normocephalic and atraumatic Eye: COMMON NORMALS: conjunctivae normal CONJUNCTIVA: Yes conjunctivae normal Neck/C-Spine: COMMON NORMALS: full ROM and supple Chest: COMMONS NORMALS: normal inspection of the chest Resp: COMMON NORMALS: normal respiratory effort, No retractions, No use of accessory muscles and clear to auscultation bilaterally AUSCULTATION: clear to auscultation bilaterally Cardio: COMMON NORMALS: regular rate, regular rhythm and No murmurs present (Cardio) RATE: regular rate RHYTHM: regular rhythm GI: COMMON NORMALS: Normal to inspection, nondistended, normoactive bowel sounds present, Soft to palpation, non-tender and no masses PALPATION: Yes Soft to palpation Extremity: COMMON NORMALS: normal to inspection and full ROM Neuro: COMMON NORMALS: patient oriented x3, moves all extremities and no focal motor deficits Psych: COMMON NORMALS: mental status grossly normal, Normal thought process present and cooperative THOUGHT PROCESS: Normal thought process present Skin: COMMON NORMALS: no rashes or lesions noted and no wounds GENERAL SKIN EXAM: no rashes or lesions noted Course Vital Signs: Vital signs: Vital Signs Temperature 97.9 F 08/16/24 14:14 Pulse Rate 86 08/16/24 14:14 Respiratory Rate 17 08/16/24 15:15 Blood Pressure 145/92 08/16/24 16:30 Pulse Oximetry 98 08/16/24 16:30 Oxygen Delivery Me thod Room Air 08/16/24 14:14 MDM - Abdominal Pain Medical Decision Making Patient presents here with abdominal pain blood work Ct here shows no acute findings blood work here is at his baseline he stable for discharge will prescribe Zofran he is to follow-up with PCP return if worsening he understands agrees to plan Medical Records I reviewed the patient's medical records. Lab Data I reviewed the patient's lab results. 08/16/24 14:49 08/16/24 14:49 Labs/Radiology: Radiology Impressions Abdomen/Pelvis CT 08/16/24 15:32 IMPRESSION: 1. Cirrhotic liver morphology with sequela of portal hypertension, chronic portal vein occlusion and cavernous transformation. No ascites. 2. Splenomegaly with interval decrease in prominence of previously seen infarct. 3. Status post gastric sleeve resection. No obstruction. 4. Mural bladder wall thickening, which may be due to underdistention, however cystitis may have similar appearance. 5. Large colonic stool burden, which may be seen with constipation. 6. Subcentimeter bilateral renal hypodensities. These are not completely characterized but are likely benign cysts. In the absence of risk factors, no further workup is recommended. COMMENTS: Consistent with the [employer]'s Incidental Findings Committee white paper (J Am Shagufta Radiol 2018): Any incidental renal lesion less than 1 cm or classified as too small to characterize, or any incidental cystic renal lesion characterized as simple-appearing, is likely benign. No follow-up imaging is recommended for these lesions per consensus recommendations based on imaging criteria. Laboratory Results WBC 2.75 10^3/uL (3.29-11.43) L 08/16/24 14:49 RBC 3.79 10^6/uL (3.85-5.65) L 08/16/24 14:49 Hgb 12.30 g/dL (11.27-16.99) 08/16/24 14:49 Hct 36.4 % (37-53) L 08/16/24 14:49 MCV 96.0 fl (82-101) 08/16/24 14:49 MCH 32.5 pg (27-33) 08/16/24 14:49 MCHC 33.8 g/dL (30-55) 08/16/24 14:49 RDW 14.7 % (12.1-15.1) 08/16/24 14:49 Plt Count 54 10^3/cmm (157-399) L 08/16/24 14:49 MPV 9.0 fL (7.4-10.4) 08/16/24 14:49 Neut % (Auto) 65.1 % 08/16/24 14:49 Lymph % (Auto) 24.7 % 08/16/24 14:49 [place] % (Auto) 7.6 % 08/16/24 14:49 Eos % (Auto) 1.8 % 08/16/24 14:49 Baso % (Auto) 0.4 % 08/16/24 14:49 Neut # (Auto) 1.79 10^3/uL (1.8-7.7) L 08/16/24 14:49 Lymph # (Auto) 0.7 10^3/uL (0.8-4.8) L 08/16/24 14:49 [place] # (Auto) 0.2 10^3/uL (0.2-0.9) 08/16/24 14:49 Eos # (Auto) 0.1 10^3/uL (0.0-0.8) 08/16/24 14:49 Baso # (Auto) 0.0 10^3/uL (0.0-0.1) 08/16/24 14:49 Nucleated RBC % (auto) 0 % 08/16/24 14:49 Nucleated RBCs # 0.0 /100WBC 08/16/24 14:49 Sodium 139 mmol/L (136-145) 08/16/24 14:49 Potassium 3.9 mmol/L (3.5-5.1) 08/16/24 14:49 Chloride 106 mmol/L (98-107) 08/16/24 14:49 Carbon Dioxide 23 mmol/L (22-29) 08/16/24 14:49 Anion Gap 13.9 (5-19) 08/16/24 14:49 BUN 16 mg/dL (6-20) 08/16/24 14:49 Creatinine 0.9 mg/dL (0.7-1.2) 08/16/24 14:49 GFR Calculation 93.5 mL/min (90-130) 08/16/24 14:49 Glucose 109 mg/dL (65-115) 08/16/24 14:49 Calculated Osmolality 290 mOsm/kg (285-295) 08/16/24 14:49 Calcium 8.6 mg/dL (8.5-10.5) 08/16/24 14:49 Total Bilirubin 0.7 mg/dL (0.15-1.2) 08/16/24 14:49 AST 21 U/L (0-40) 08/16/24 14:49 ALT 15 U/L (0-41) 08/16/24 14:49 Alkaline Phosphatase 55 U/L (40-130) 08/16/24 14:49 NT-Pro-B Natriuret Pep 198 pg/mL (0-125) H 08/16/24 14:49 Total Protein 6.3 g/dL (6.6-8.7) L 08/16/24 14:49 Albumin 3.8 g/dL (3.5-5.2) 08/16/24 14:49 Globulin 2.5 g/dL (1.3-4.6) 08/16/24 14:49 Lipase 22 U/L (13-60) 08/16/24 14:49 Urine Color Dark yellow (Yellow) A 08/16/24 15:01 Urine Appearance Clear (CLEAR) 08/16/24 15:01 Urine pH 5.5 (5-7) 08/16/24 15:01 Ur Specific [place] 1.024 (1.005-1.030) 08/16/24 15:01 Urine Protein 3+ (Negative) A 08/16/24 15:01 Urine Glucose (UA) Negative (Normal) 08/16/24 15:01 Urine Ketones Trace (Negative) 08/16/24 15:01 Urine Blood 2+ (Negative) A 08/16/24 15:01 Urine Nitrate Negative (Negative) 08/16/24 15:01 Urine Bilirubin Negative (Negative) 08/16/24 15:01 Urine Urobilinogen 1.0 mg/dL (Negative) 08/16/24 15:01 Ur Leukocyte Esterase Negative (Negative) 08/16/24 15:01 Urine RBC 21-50 /hpf (0-2) H 08/16/24 15:01 Urine WBC 0-5 /hpf (0-5) 08/16/24 15:01 Ur Squamous Epith Cells 0-5 /hpf (0-5) 08/16/24 15:01 Amorphous Sediment Not Reportable 08/16/24 15:01 Urine Bacteria None seen /hpf (NONE) 08/16/24 15:01 Hyaline Casts 0.40 /lpf 08/16/24 15:01 All radiology interpretation(s) finalized by discharge Discharge Plan Discharge Patient Disposition: Home Clinical Impression: Abdominal pain Condition: Stable Prescriptions: New ondansetron 4 mg tablet,disintegrating 4 mg PO Q6H PRN (Reason: nausea and vomiting) Qty: 14 0RF No Action spironolactone 100 mg tablet 100 mg PO DAILY bumetanide 1 mg tablet 3 mg PO DAILY ondansetron HCl 8 mg tablet 8 mg PO Q8H nortriptyline 25 mg capsule 25 mg PO QPM nadolol 20 mg tablet 20 mg PO DAILY Rx Instructions: TAKE ONE TABLET BY MOUTH DAILY FOR THE FIRST WEEK THEN 1/2 TABLET DAILY- IF DOING WELL WITHOUT SYMPTOMS OF LOW BLOOD PRESSURE THEN GO TO 1 FULL TAB alprazolam 0.5 mg tablet 0.5 - 1 mg PO Q6H gabapentin 800 mg tablet 800 mg PO Q8H pantoprazole 40 mg tablet,delayed release (DR/EC) 40 mg PO BID lactulose [Enulose] 10 gram/15 mL solution 30 ml PO BID oxycodone 10 mg tablet 10 mg PO QID desvenlafaxine succinate 100 mg tablet extended release 24 hr 100 mg PO DAILY Xifaxan 550 mg tablet 550 mg PO BID Linzess 145 mcg capsule 145 mcg PO DAILY Eliquis 2.5 mg tablet 2.5 mg PO BID Discharge Orders: Discharge ED (Routine); Ordered 08/16/24 Ordered By: Renetta Powell Referrals: Karan Kramer MD [Primary Care Provider] - 4-7 days Discharge Diet: Advance as tolerated Discharge Activity: Resume usual activity Patient Instructions: Abdominal Pain (ED) Print Language: Thai Coding Level of Care Code ED Supervisor Logging for Román Díaz
[2024-08-16] MEDS: sodium chloride 0.9% 1,000 ML 999 ML IV (14:58)
[2024-08-16 15:02] LABS: Basophils % 0.4 %; Eosinophils # 0.1 10^3/uL (0.0-0.8); Eosinophils % 1.8 %; Hematocrit 36.4 % (37-53); Lymphocytes # 0.7 10^3/uL (0.8-4.8); Lymphocytes % 24.7 %; Mean Corpuscular HGB Conc 33.8 g/dL (30-55); Mean Corpuscular Hemoglobin 32.5 pg (27-33); Monocytes # 0.2 10^3/uL (0.2-0.9); Monocytes % 7.6 %; Neutrophils # 1.79 10^3/uL (1.8-7.7); Neutrophils % 65.1 %; Nucleated Red Blood Cells % 0 %; Platelet Count 54 10^3/cmm (157-399); Red Blood Count 3.79 10^6/uL (3.85-5.65); Red Cell Distribution Width 14.7 % (12.1-15.1); White Blood Count 2.75 10^3/uL (3.29-11.43)
[2024-08-16 15:09] LABS: Bilirubin Urine Negative (Negative); Blood Urine 2+ (Negative); Glucose Urine UA Negative (Normal); Ketones Urine Trace (Negative); Leukocyte Esterase Urine Negative (Negative); Nitrate Urine Negative (Negative); Protein Urine 3+ (Negative); Specific Gravity, Urine 1.024 (1.005-1.030); Urine Appearance Clear (CLEAR); Urine Color Dark Yellow (Yellow); pH Urine 5.5 (5-7)
[2024-08-16 15:11] LABS: Add Urine Microscopic? YES; Bacteria Urine None Seen /hpf; RBC Urine 21-50 /hpf (0-2); Squamous Epithelial Cell Urine 0-5 /hpf (0-5); WBC Urine 0-5 /hpf (0-5)
[2024-08-16 15:15] VITALS: RESP 17; O2SAT 97
[2024-08-16] MEDS: morphine 4 mg/mL SDV 1 mL IVP (15:15)
[2024-08-16] MEDS: ondansetron 2 mg/ML SDV 2 mL 4 MG IVP (15:15)
[2024-08-16 15:17] LABS: Alanine Aminotransferase 15 U/L (0-41); Albumin Level 3.8 g/dL (3.5-5.2); Alkaline Phosphatase 55 U/L (40-130); Anion Gap 13.9 (5-19); Aspartate Amino Transferase 21 U/L (0-40); Blood Urea Nitrogen 16 mg/dL (6-20); Calcium 8.6 mg/dL (8.5-10.5); Carbon Dioxide 23 mmol/L (22-29); Chloride 106 mmol/L (98-107); Creatinine Clr Calc Pharmacy 137.5914; Globulin 2.5 g/dL (1.3-4.6); Glomerular Filtration Rate 93.5 mL/min (90-130); Glucose 109 mg/dL (65-115); Lipase 22 U/L (13-60); Osmolality Calculated 290 mOsm/kg (285-295); Potassium 3.9 mmol/L (3.5-5.1); Sodium 139 mmol/L (136-145); Total Bilirubin 0.7 mg/dL (0.15-1.2); Total Protein 6.3 g/dL (6.6-8.7)
[2024-08-16 15:18] LABS: Add Urine Culture? Yes
[2024-08-16 15:30] VITALS: BP 145/92; O2SAT 94
--- NOTE | 2024-08-16 15:32 | CTR_ITS ---
PROCEDURE INFORMATION: Exam: CT Abdomen And Pelvis With Contrast Exam date and time: 08/16/2024 3:41 PM Age: 39 years old Clinical indication: Abdominal pain; Epigastric; Additional info: Abd pain TECHNIQUE: Imaging protocol: Computed tomography of the abdomen and pelvis with contrast. Radiation optimization: All CT scans at this facility use at least one of these dose optimization techniques: automated exposure control; mA and/or kV adjustment per patient size (includes targeted exams where dose is matched to clinical indication); or iterative reconstruction. Contrast material: OMNI 350; Contrast volume: 100 ml; Contrast route: INTRAVENOUS (IV); COMPARISON: CT abdomen pelvis w con* [id number] 08/22/2023 7:55 PM RADIATION DOSE METRICS: Total DLP (mGy-cm): 1050.03 FINDINGS: Lungs: Unremarkable. Liver: Cirrhotic liver morphology. Gallbladder and biliary ducts: Normal. No calcified stones. No ductal dilation. Pancreas: Normal. No ductal dilation. Spleen: Splenomegaly with prior infarct. Adrenal glands: Normal. No mass. Kidneys and ureters: Simple appearing renal cysts plus additional subcentimeter bilateral renal hypodensities. These are not completely characterized but are likely benign cysts. In the absence of risk factors, no further workup is recommended. Stomach and bowel: Status post gastric sleeve resection. Large colonic stool burden. 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 Appendix: No evidence of appendicitis. Intraperitoneal space: Unremarkable. No free air. No significant fluid collection. Vasculature: Portal vein thrombosis with cavernous transformation. Occlusion of splenic vein. Lymph nodes: Unremarkable. No enlarged lymph nodes. Urinary bladder: Mural bladder wall thickening. Reproductive: Unremarkable as visualized. Bones/joints: Unremarkable. No acute fracture. Soft tissues: Moderate fat containing umbilical hernia which contains few vessels. No evidence of obstruction. CT/CT abdomen pelvis w con* [id number] IMPRESSION: 1. Cirrhotic liver morphology with sequela of portal hypertension, chronic portal vein occlusion and cavernous transformation. No ascites. 2. Splenomegaly with interval decrease in prominence of previously seen infarct. 3. Status post gastric sleeve resection. No obstruction. 4. Mural bladder wall thickening, which may be due to underdistention, however cystitis may have similar appearance. 5. Large colonic stool burden, which may be seen with constipation. 6. Subcentimeter bilateral renal hypodensities. These are not completely characterized but are likely benign cysts. In the absence of risk factors, no further workup is recommended. COMMENTS: Consistent with the [employer]'s Incidental Findings Committee white paper (J Am Shagufta Radiol 2018): Any incidental renal lesion less than 1 cm or classified as too small to characterize, or any incidental cystic renal lesion characterized as simple-appearing, is likely benign. No follow-up imaging is recommended for these lesions per consensus recommendations based on imaging criteria.
[2024-08-16 15:41] LABS: NT Pro B Type Natriuretic Pept 198 pg/mL (0-125)
[2024-08-16] MEDS: iohexol 350 mg/mL 500 mL Btl (per mL) IV (15:43)
[2024-08-16 16:00] VITALS: BP 145/92; O2SAT 96
[2024-08-16 16:30] VITALS: BP 145/92; O2SAT 98
[2024-08-16] MEDS: LORazepam 2 mg/mL INJ 1 mL 1 MG IVP (17:20)
[2024-08-16 17:21] VITALS: BP 143/93; PULSE 74; O2SAT 97
== END 2024-08-16 17:22 | disposition home or self-care (01) ==
PROVIDERS: Emergency Provider Emergency Medicine; PCP Family Medicine
DX: R10.9 Unspecified abdominal pain (principal); Z79.01 Long term (current) use of anticoagulants; Z87.891 Personal history of nicotine dependence; I10 Essential (primary) hypertension
CPT/HCPCS: 36415; 74177; 80053; 81001; 83690; 83880; 85025; 87086; 96374; 96375; 99285; J2060; J2270; J2405; J7030